=== PATIENT | male | born 1960 | race Caucasian/White ===

== ENCOUNTER 2020-02-27 16:23 | Emergency (ER) | payer BC, SELFPAY ==
--- NOTE | 2020-02-27 16:59 | ED.GENADULT ---
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 Currently there is no blurry vision there is a watery drainage with some no nasal discharge no fever chills no headaches and has good visual acuity. Onset (ago): day(s) Radiation: non-radiation Severity: moderate Quality: burning Pain Consistency: constant Exacerbating factors: none Associated symptoms: denies other symptoms Related Data Allergies Allergy/AdvReac Type Severity Reaction Status Date / Time PCN Allergy Mild Uncoded 09/25/07 20:13 Review of Systems Review of Systems: All systems reviewed & are unremarkable except as noted in HPI and below PMFSH Past Medical History Medical History Patient denies medical problems Exam Const: General: cooperative and healthy appearing HENMT: Head: normal to inspection General nose exam: Normal external nose present Face and sinus: normal facial exam and sinuses nontender Mouth: Yes Normal oral and palatal mucosa present Eyes: Visual Vallecillo: normal visual vallecillo by confrontation Alignment and Position: alignment normal and position normal Conjunctivae: conjunctivae normal and conjunctival abnormality Sclera: sclerae normal Cornea: fluorescein used ( used in both eyes left eye showed a small corneal abrasion at the 5 o'cloc) Chest: Chest palpation & inspection: normal inspection of the chest Cardio: Jugular venous distension: no JVD Palpation: normal PMI Rate: regular rate Rhythm: regular rhythm Heart sounds: S1 normal heart sound present and S2 normal heart sound present GI: Inspection: normal to inspection Skin: General skin exam: normal color and no rashes or lesions noted Neuro: General: oriented to person, oriented to place, oriented to time, patient oriented x3 and gait normal Extrem: General: normal to inspection Psych: Appearance: grossly normal Mental Status: mental status grossly normal Course Course Emergency Course: fluorescein stain used to bilateral eyes and small corneal abrasion was located in the 5 o'clock position of his left cornea and Cortisporin eye drop was instilled into the left eye. Eye drops were given to the patient and advised to take 1 drop 3 times a day x1 week and follow-up with his primary care physician. Procedures FB Removal Eye Foreign Body #1: Foreign Body Removal Date: 02/27/20 Foreign Body Removal Time: 17:07 Location: eye (L) and eye (R) Topical anesthetic used: tetracaine Foreign body: other ( No foreign body observed with some inspection) Evidence of corneal penetration: Yes Technique: irrigation Procedure performed under: direct visualization with magnification Post-procedure medication: ophthalmic antibiotic and topical anesthetic Patient tolerated procedure: well Critical Care Time Critical Care Time Critical Care Time: No Discharge Plan Discharge Clinical Impression: Corneal abrasion, left Qualifiers: Encounter type: initial encounter Qualified Code(s): S05.02XA - Injury of conjunctiva and corneal abrasion without foreign body, left eye, initial encounter Patient Disposition: Home, Self-Care Condition: Stable Instructions: Antibiotic Form, Corneal Abrasion (ED) Additional Instructions: use eye drops 3 times daily x1 week and follow-up with primary care physician within 1 week for further evaluation treatment. Follow-up/Referrals: Tavo Pickens MD [Primary Care P
[2020-02-27 17:15] VITALS: BP 161/96; PULSE 70; RESP 20; TEMP 36.9; O2SAT 98
[2020-02-27 17:30] VITALS: PULSE 69; RESP 20; O2SAT 98
[2020-02-27] MEDS: NEOMYCIN/POLYMYXIN/DEXAMETH OP SUSP 5 ML BTL 1 DROP (17:34)
== END 2020-02-27 17:35 | disposition home or self-care (01) ==
PROVIDERS: Emergency Provider Emergency Medicine; PCP Internal Medicine
DX: S05.02XA Injury of conjunctiva and corneal abrasion without foreign body, left eye, initial encounter (principal); T15.92XA Foreign body on external eye, part unspecified, left eye, initial encounter
CPT/HCPCS: 99282; 99283; A9270

== ENCOUNTER 2020-11-24 01:08 | Emergency (ER) | payer BC, SELFPAY ==
[2020-11-24 01:08] VITALS: BP 133/98; PULSE 78; RESP 20; TEMP 36.6; O2SAT 100
[2020-11-24 01:10] VITALS: PULSE 78
--- NOTE | 2020-11-24 01:14 | ECG_ITS ---
Measurements Intervals Lambert Rate: 74 P: 28 NH: 225 QRS: 12 QRSD: 92 T: 18 QT: 353 QTc: 393 Interpretive Statements SINUS RHYTHM WITH FIRST DEGREE AV BLOCK ABNORMAL ECG Electronically Signed On 11-24-2020 8:10:55 CDT by Mor Burris D.O.
[2020-11-24 01:29] LABS: Basophils Absolute Auto 0.06 K/mm3 (0.00-0.10); Basophils Percent Auto 0.8 % (0.0-1.0); Eosinophils Absolute Auto 0.31 K/mm3 (0.02-0.50); Eosinophils Percent Auto 4.3 % (1.0-6.0); Hematocrit 42.3 % (40.0-54.0); Hemoglobin 15.2 g/dL (14.0-18.0); Immature Granulocyte Absolute 0.03 K/mm3 (0.00-0.00); Immature Granulocyte Percent A 0.4 % (0.0-0.0); Lymphocytes Absolute Auto 2.97 K/mm3 (1.10-4.50); Lymphocytes Percent Auto 40.8 % (18.0-42.0); Mean Corpuscular HGB Conc 35.9 g/dL (32.0-36.0); Mean Corpuscular Hemoglobin 31.8 pg (27.0-31.0); Mean Corpuscular Volume 88.5 fL (78.0-102.0); Mean Platelet Volume 9.2 fl (8.7-11.0); Monocytes Absolute Auto 0.64 K/mm3 (0.10-0.90); Monocytes Percent Auto 8.8 % (2.0-11.0); Neutrophils Absolute Auto 3.3 K/mm3 (1.7-7.2); Neutrophils Percent Auto 44.9 % (50.0-70.0); Platelet Count Result 241 K/mm3 (150-420); Red Blood Count 4.78 M/mm3 (4.70-6.10); Red Cell Distribution Width 12.6 % (11.6-14.4); White Blood Count 7.3 K/mm3 (4.8-10.8)
--- NOTE | 2020-11-24 01:31 | ED.ARRPALP ---
HPI - Arrhythmia/Palpitations General Chief Complaint: Arrhythmia/Palpitations Stated Complaint: Heart Palpitations Time Seen by Provider: 11/24/20 01:31 History of Present Illness HPI narrative: 60-year-old male patient is here with chief complaints of palpitations that started around 9:45 p.m. last night. Patient states that he fell asleep and was awakened by work just prior to arrival here and he felt palpitations 1 more time. Apparently these have been going on intermittently since the August after his Post COVID vaccine shot. Patient has completed the short series however. He denies any associated chest pain, shortness of breath, diaphoresis or any pain in the neck arms or jaw at the time of the palpitations are otherwise. Denies overuse of caffeine. He is not a smoker has quit 4 years ago. His only medication is losartan hydrochlorothiazide for high blood pressure. Patient denies any unexplained weight loss or any tremors are waking up at night with sweating and the palpitations. patient states that the the palpitations the very infrequent and happen randomly. He has never had a Holter monitor placed before Related Data Home Medications Medication Instructions Recorded Confirmed losartan-hydrochlorothiazide 1 tablet PO DAILY 11/24/20 11/24/20 Allergies Allergy/AdvReac Type Severity Reaction Status Date / Time PCN Allergy Mild Uncoded 09/25/07 20:13 Review of Systems Review of Systems: All systems reviewed & are unremarkable except as noted in HPI and below PMFSH Past Medical History Medical History (Updated 11/24/20 @ 02:00 by Eli Stafford MD) Hypertension Patient denies medical problems Social History Social History Gender identity (if verbalized by the patient): Male Exam Const: General: healthy appearing, no acute distress and alert Nutritional Appearance: well nourished Orientation/consciousness: patient oriented x3 HENMT: Head: normal to inspection Eyes: Conjunctivae: conjunctivae normal Pupils: Equal, round and reactive pupils present EOM: EOMs intact bilaterally Neck: Neck: normal visual inspection and no lymphadenopathy Chest: Chest palpation & inspection: normal inspection of the chest Resp: Effort & Inspection: normal respiratory effort Auscultation: clear to auscultation bilaterally Cardio: Rate: regular rate Rhythm: regular rhythm Heart sounds: no murmurs GI: GI Palp: Yes Soft to palpation, No Tenderness to palpation present (GI), No Guarding due to palpation present (GI), No Rigid due to palpation, No Palpable mass present and No Rebound tenderness present Auscultation: normal bowel sounds Back/Spine/Pelvis: Back: no CVA tenderness Skin: General skin exam: normal color Rashes: no rashes Neuro: General: patient oriented x3, moves all extremities, no focal motor deficits and CN's II-XI intact bilaterally Cranial nerves: Yes Nystagmus not present Speech: normal speech Gait exam (Neuro): Normal gait present Extrem: General: normal to inspection and no edema Psych: Appearance: grossly normal Mental Status: mental status grossly normal Affect: normal affect Attitude: cooperative Thought content: Yes Normal thought content present Course Course Emergency Course: EKG shows normal sinus rhythm with first-degree AV block. No other dysrhythmia is noted. CBCs normal. Comprehensive metabolic profile is normal an AST is pending. Troponin is normal. Patient has continued to remain in sinus rhythm on the monitor during his ER stay. Will arrange for the patient to have a Holter monitor for 1 week and he has been provided with instructions. MDM - Arrhythmia/Palpitations Lab Data Result diagrams: 11/24/20 01:25 11/24/20 01:25 Labs: Lab Results 11/24/20 11/24/20 11/24/20 Range/Units 01:25 01:25 01:25 WBC 7.3 (4.8-10.8) K/mm3 RBC 4.78 (4.70-6.10) M/mm3 Hgb 15.2 (14.0-18.0) g
[2020-11-24 01:46] LABS: Alanine Aminotransferase 63 U/L (16-63); Albumin Level 3.7 g/dL (3.4-5.0); Alkaline Phosphatase 57 U/L (46-116); Anion Gap 14 mmol/L (8-16); Bilirubin,Total 0.5 mg/dL (0.00-1.00); Blood Urea Nitrogen 9 mg/dL (7-18); Calcium 8.5 mg/dL (8.5-10.1); Carbon Dioxide 23 mmol/L (21-32); Chloride 104 mmol/L (98-108); Estimated CRCL calculation 69 ml/min; Estimated Glomerular Filt Rate > 60; Glucose 133 mg/dL (70-99); Osmolality Calculated 292 mOsm/kg (285-295); Potassium 3.6 mmol/L (3.5-5.1); Sodium 141 mmol/L (136-145); Total Protein 7.3 g/dL (6.4-8.2); Troponin I 7.3 ng/L (0.00-60.4)
[2020-11-24 01:55] LABS: Magnesium 2.1 mg/dL (1.8-2.4)
[2020-11-24 02:12] LABS: Aspartate Amino Transferase 38 U/L (15-37)
[2020-11-24 02:31] VITALS: BP 121/87; PULSE 76; RESP 20; TEMP 37.1; O2SAT 99
== END 2020-11-24 02:35 | disposition home or self-care (01) ==
PROVIDERS: Emergency Provider Emergency Medicine; PCP Internal Medicine
DX: R00.2 Palpitations (principal)
CPT/HCPCS: 36415; 80053; 83735; 84484; 85025; 93005; 99282; 99284

== ENCOUNTER 2020-11-24 15:53 | Outpatient (CLI) | payer BC, SELFPAY ==
--- NOTE | 2020-12-25 08:22 | WPDHOLTEREM ---
Holter/Event Monitor Holter/Event Monitor Date of procedure: 11/24/20 Holter/Event Procedure: Event Monitor Indications: Palpitations Conclusion: 1. 28 days event monitor between 11/24/20-12/23/20. There are 22 available transmissions for analysis. 2. Predominant rhythm is sinus rhythm. HR range 30-196 bpm; average HR 70 bpm. 3. There are occasional premature supraventricular complexes with total burden of <1%. There are 2 episodes of atrial fibrillation, fastest at 126 bpm and longest lasting 1 hr, 18 minutes. There are 5 episodes of supraventricular tachycardia, fastest at 196 bpm. 4. There are occasional premature ventricular complexes with total burden of <1%. No ventricular tachycardia. 5. There are 2 pauses greater than 2 seconds with longest at 2.7 seconds at 09:11. 6. Patient reports 7 episodes of symptoms of heart racing and symptoms other than listed which demonstrate sinus rhythm, HR range 76-85 bpm with 1 PAC, and episodes of atrial fibrillation and SVT with HR range 87-196 bpm.
== END 2020-11-24 15:54 | disposition home or self-care (01) ==
LOC: CHSCARD 15:55
PROVIDERS: PCP Internal Medicine; Visit Provider Internal Medicine
DX: R00.2 Palpitations (principal); R42 Dizziness and giddiness
CPT/HCPCS: 93270

== ENCOUNTER 2021-01-14 07:03 | Outpatient (CLI) | payer BC, SELFPAY ==
--- NOTE | 2021-01-14 07:06 | ECHO_ITS ---
Patient Info Name: Rick Reeves Age: 60 years : 1960 Gender: Male Ht: 68 in Wt: 210 lbs BSA: 2.17 m2 HR: 63 bpm BP: 140 / 68 mmHg Exam Date: 01/14/2021 7:16 AM Exam Location: [facility] Patient Status: Outpatient Admit Date: 01/14/2021 Staff Ordering Physician: Mor Burris DO Crime Prevention Police Officer: Jacob Marks RDCS, RT Attending Provider: Mor Burris DO Referring Physician: Dayton PERALTA; Exam Type: CA echo doppler color flow Study Info Indications I48.0 - Paroxysmal atrial fibrillation Complete two-dimensional, color flow and Doppler transthoracic echocardiogram is performed. Strain analysis performed. Summary 1. Complete two-dimensional, color flow and Doppler transthoracic echocardiogram is performed. 2. Left ventricular chamber dimension is normal. 3. Left ventricular systolic function is normal, estimated at 60-65%. 4. The left ventricular diastolic function is normal. 5. E/e' 8 is minimally elevated. 6. Global longitudinal strain is normal at -21.9%. 7. Left atrial chamber dimension is mildly enlarged. 8. There is mild mitral valve regurgitation. 9. There is trace tricuspid valve regurgitation. 10. No pulmonary hypertension, estimated pulmonary arterial systolic pressure is 34 mmHg. 11. Dilated inferior vena cava with >50% collapse upon inspiration consistent with elevated right atrial pressure, 10 mmHg. Left Ventricle E/e' 8 is minimally elevated. Global longitudinal strain is normal at -21.9%. Left ventricular chamber dimension is normal. Left ventricular systolic function is normal, estimated at 60-65%. The left ventricular diastolic function is normal. Right Ventricle Right ventricular chamber dimension is normal. Right ventricular systolic function is normal. Left Atria Left atrial chamber dimension is mildly enlarged. Right Atria Right atrial chamber dimension is normal. Aortic Valve The aortic valve is trileaflet. There is no aortic valve stenosis. There is no aortic valve regurgitation. Pulmonic Valve There is no pulmonic regurgitation. Mitral Valve There is no mitral valve stenosis. There is mild mitral valve regurgitation. Tricuspid Valve There is trace tricuspid valve regurgitation. No pulmonary hypertension, estimated pulmonary arterial systolic pressure is 34 mmHg. Pericardium/Pleural There is no pericardial effusion. Inferior Vena Cava Dilated inferior vena cava with >50% collapse upon inspiration consistent with elevated right atrial pressure, 10 mmHg. Aorta The aortic root size at the sinus of Valsalva is normal. Left Ventricular Outflow Tract Name Value Normal LVOT 2D LVOT Diameter 2.0 cm LVOT Doppler LVOT Peak Velocity 108 cm/s LVOT Peak Gradient 5 mmHg LVOT Mean Gradient 2 mmHg LVOT VTI 25 cm LVOT VTI/AV VTI Ratio 0.9 LVOT Stroke Volume 82 ml Mitral Valve Name
== END 2021-01-14 07:04 | disposition home or self-care (01) ==
LOC: CHSIMG 07:04
PROVIDERS: PCP Internal Medicine; Visit Provider Internal Medicine Cardiovascular Disease
DX: I48.0 Paroxysmal atrial fibrillation (principal); I34.0 Nonrheumatic mitral (valve) insufficiency
CPT/HCPCS: 93306

== ENCOUNTER 2021-02-08 07:50 | Outpatient (CLI) | payer BC, SELFPAY ==
--- NOTE | 2021-02-18 12:56 | WPDHOMESLEEP ---
Sleep Study - Home Unattended Date of Study: 02/08/21 <Rama Manley DO - Last Filed: 02/18/21 13:10> Ordering Provider: Mor Burris DO <Rama Manley, DO - Last Filed: 02/18/21 13:10> Interpreting Provider: Rama Manley DO <Rama Manley DO - Last Filed: 02/18/21 13:10> Home Sleep Study Type: Apnea Link Air <Rama Manley DO - Last Filed: 02/18/21 13:10> Height: 1.73 m <Rama Manley DO - Last Filed: 02/18/21 13:10> Weight: 95.254 kg <Rama Manley DO - Last Filed: 02/18/21 13:10> Body Mass Index: 31.9 <Rama Manley DO - Last Filed: 02/18/21 13:10> Neck Circumference (inches): 18.5 <Rama Manley DO - Last Filed: 02/18/21 13:10> Armour: 6 <Rama Manley DO - Last Filed: 02/18/21 13:10> Reason for Sleep Study Hypersomnia <Rama Manley DO - Last Filed: 02/18/21 13:10> Sleep History The patient is a 60-year-old male with hypertension and paroxysmal atrial fibrillation that had a home sleep test ordered by his logistics technician. The patient works as a general contractor. He denies awakening from sleep short of breath. He denies awakening at night with heartburn, belching or cough. He rarely snores and it is never loud enough that others complain. He denies having trouble sleeping when he has a cold. He denies waking up gasping for air throughout the night. He occasionally has heart palpitations or irregular heartbeats throughout the night. He denies falling asleep during the day and rarely while driving. He denies sleep paralysis, cataplexy and hypnagogic / hypnopompic hallucinations. He denies having nightmares. He often has thoughts racing through his mind. He denies feeling sad, depressed or anxious. He denies kicking throughout the night. He denies crawling and aching feelings in his legs swell as leg pain during the night. He denies grinding his teeth during sleep and awakening with morning jaw pain. He denies being bothered by pain during the day and being awakened by pain during the night. He occasionally wakes up feeling stiff in the morning with sore and achy muscles. He goes to bed at 9:30 p.m. on the weekdays and 11:00 p.m. on the weekends. It takes him a few minutes to fall asleep. He wakes up 2-3 times per night. When he awakens, he will use the restroom and pray. Sometimes he can fall asleep within a few minutes but other times it takes hours. He will wake up at 5:30 a.m. on the weekdays and 8:00 a.m. on the weekends. He typically gets 6-8 hours of sleep per night. He does not stay in bed after waking up in the morning. He does not consume any caffeinated beverages within 2 hours of going to bed. He does not do physical exercise before bedtime. He will watch television before falling asleep. He will take naps in the afternoon or evening on rainy days. The naps are usually refreshing. The patient quit smoking cigarettes in 2016. He drinks 2-3 caffeinated beverages per week. He will drink 2-3 alcoholic beverages per day. He denies recreational drug use. <Rama Manley DO - Last Filed: 02/18/21 13:10> [facility] Past Medical History Medical History: Medical History Hypertension Patient denies medical problems <Rama Manley DO - Last Filed: 02/18/21 13:10> Social History Social History: Social History Smoking status: Former smoker Alcohol intake: current Drinks per week: 5 Gender identity (if verbalized by the patient): Male <Rama Manley DO - Last Filed: 02/18/21 13:10> Medications Home Medications: Home Medications Medication Instructions Recorded Confirmed Type losartan-hydrochlorothiazide 1 tablet PO DAILY 11/24/20 12/21/20 History aspirin 325 mg tablet,delayed 325 mg PO DAILY 12/21/20 12/21/20 H
[2021-02-18 13:09] VITALS: BMI 31.9
== END 2021-02-09 10:34 | disposition home or self-care (01) ==
LOC: ANHCSM 07:51
PROVIDERS: PCP Internal Medicine; Visit Provider Internal Medicine Cardiovascular Disease
DX: G47.33 Obstructive sleep apnea (adult) (pediatric) (principal); G47.10 Hypersomnia, unspecified
CPT/HCPCS: 95806

== ENCOUNTER 2021-02-23 13:14 | Outpatient (CLI) | payer BC, SELFPAY ==
[2021-02-23 14:51] LABS: Influenza A QL RT-PCR Negative (Negative); Influenza B QL RT-PCR Negative (Negative); SARS-CoV-2 RNA PCR Negative (Negative)
== END 2021-02-23 13:15 | disposition home or self-care (01) ==
LOC: CHSLAB 13:17
PROVIDERS: PCP Internal Medicine; Visit Provider Internal Medicine
DX: Z20.822 Contact with and (suspected) exposure to COVID-19 (principal)
CPT/HCPCS: 87081; 87502; 87880; C9803; U0003; U0005

== ENCOUNTER 2021-02-25 04:58 | Emergency (ER) | payer BC, SELFPAY ==
--- NOTE | ~2021-02-25 | CT_ITS ---
EXAMINATION: CT soft tissue neck w con DATE: 02/25/2021 07:28 INDICATION: Throat pain and swelling TECHNIQUE: Computed tomography (CT) of the neck was performed with 75 mL Omnipaque-350 intravenous co ntrast. Automated exposure control and iterative reconstruction technique were employed. The dose-abraham gth product was 533.94 mGy-cm. COMPARISON: None FINDINGS: Thyroid gland is unremarkable. Submandibular and parotid glands are normal and symmetric. There are scattered normal-sized lymph nodes in the neck, no lymphadenopathy. No masses identified. Atheroscl erotic calcifications at the bilateral carotid bulbs with 40% stenosis at the right carotid bulb and 25% stenosis at the left carotid bulb relative to normal distal artery lumen diameter (NASCET criteri a). The deep spaces of the neck are unremarkable with no abscess or abnormal masses. Airway is unrema rkable. Mild cervical spondylosis. Orbits are unremarkable. Mild mucosal thickening in the left maxi llary and right sphenoid sinuses. Lung apices are normal. Visualized superior mediastinum is unremar kable. IMPRESSION: 1. Normal deep spaces of the neck with widely patent airway and no abscess. 2. Atherosclerosis with mild stenosis at the bilateral carotid bulbs, 40% on the right and 25% on the left. Reviewed, dictated and finalized at location A. IMPRESSION: 1. Normal deep spaces of the neck with widely patent airway and no abscess. 2. Atherosclerosis with mild stenosis at the bilateral carotid bulbs, 40% on th e right and 25% on the left.
--- NOTE | 2021-02-25 05:03 | ED.ALLEREA ---
HPI - Allergic Reaction General Chief complaint: Allergic Reaction Stated complaint: Possible Allergic Reaction Time Seen by Provider: 02/25/21 05:04 Source: patient Mode of arrival: ambulatory Limitations: no limitations History of Present Illness HPI narrative: 60-year-old man with a history of hypertension comes in today complaining of throat swelling and difficulty breathing that woke him up at 0130. He states He has had a sore throat and hoarse voice for last 3 or 4 days and tested negative a few days ago for COVID, influenza and strep. Patient states that he started taking azithromycin 2 days ago for the symptoms. He denies itching, wheezing coughing, rash, shortness of breath, abdominal pain, nausea and vomiting. He has had similar allergic reactions to penicillin in the past. His states that his face looks puffy, especially around his eyes. complaint: allergic reaction Onset (ago): hour(s) (1) Exposure: medication Symptoms: difficulty swallowing and difficulty breathing Severity: moderate Treatment prior to arrival: benadryl Previous Allergic Reaction History: anaphylaxis Related Data Home Medications Medication Instructions Recorded Confirmed losartan-hydrochlorothiazide 1 tablet PO DAILY 11/24/20 02/25/21 aspirin 325 mg PO DAILY 02/25/21 02/25/21 flecainide 50 mg PO DAILY PRN 02/25/21 02/25/21 Allergies Allergy/AdvReac Type Severity Reaction Status Date / Time PCN Allergy Mild Uncoded 09/25/07 20:13 Review of Systems Review of Systems: All systems reviewed & are unremarkable except as noted in HPI and below Constitutional: Constitutional: Denies chills and Denies fever(s) ENT: Reports dysphagia, Denies nasal congestion and Reports sore throat Cardiovascular: Cardiovascular: Denies chest pain, Denies rapid heart rate and Denies radiating jaw, neck or arm pain Respiratory: Respiratory: Denies cough, Reports dyspnea and Denies wheezing Gastrointestinal: Gastrointestinal: Denies abdominal pain, Denies nausea and Denies vomiting Neurologic: Denies dizziness Hematologic/Lymphatic: Hematologic/Lymphatic: Denies easy bleeding and Denies easy bruising Allergic/Immunologic: Allergic/Immunologic: Reports throat swelling PMFSH Past Medical History Medical History (Updated 02/25/21 @ 07:37 by Brenton Melendrez MD) Hypertension Obstructive sleep apnea PAF (paroxysmal atrial fibrillation) Patient denies medical problems Social History Social History Smoking status: Former smoker Alcohol intake: current Drinks per week: 5 Gender identity (if verbalized by the patient): Male Exam Const: General: alert Orientation/consciousness: patient oriented x3 Other: Mild acute distress. Hoarse voice HENMT: Head: normal to inspection Ears: external ears normal, TM's normal bilaterally and EAC's normal General nose exam: Normal nares present Mouth: Yes moist mucous membranes Throat: posterior oropharynx normal Other: Facial edema Eyes: Conjunctivae: conjunctivae normal Pupils: Equal, round and reactive pupils present EOM: EOMs intact bilaterally Resp: Effort & Inspection: normal respiratory effort, not labored and no retractions Auscultation: clear to auscultation bilaterally, no rales, no rhonchi and no wheezes Cardio: Rate: regular rate Rhythm: regular rhythm Heart sounds: no murmurs Skin: General skin exam: normal color, no jaundice and no pallor Rashes: no rashes Neuro: General: patient oriented x3, moves all extremities, no focal motor deficits and CN's II-XI intact bilaterally Gait exam (Neuro): Normal gait present Extrem: General: normal to inspection and no clubbing, cyanosis or edema Psych: Appearance: grossly normal and well kempt Affect: normal affect Attitude: cooperative Thought content: Yes Normal thought content present Course Course Emergency Course: 0545: Patient states his throat swelling fee
[2021-02-25] MEDS: diphenhydrAMINE HCl INJ 50 MG/ML VIAL 25 MG IV PUSH (05:24)
[2021-02-25] MEDS: methylPREDNISolone SOD SUCC 125 MG VIAL IV PUSH (05:24)
[2021-02-25] MEDS: EPINEPHrine HCL INJ 1 MG/ML AMPUL 0.3 MG SUB-Q (05:33)
[2021-02-25 05:46] VITALS: BP 127/115; PULSE 64; RESP 18; TEMP 36.7; O2SAT 100
--- NOTE | 2021-02-25 06:37 | PC.NURSE ---
pt reporting that his legs and arms twitch every now and than. Informed MD Melendrez, no new orders at this time.
[2021-02-25 06:41] LABS: Basophils Absolute Auto 0.08 K/mm3 (0.00-0.10); Basophils Percent Auto 0.9 % (0.0-1.0); Eosinophils Absolute Auto 0.35 K/mm3 (0.02-0.50); Eosinophils Percent Auto 3.9 % (1.0-6.0); Hematocrit 46.8 % (40.0-54.0); Immature Granulocyte Absolute 0.07 K/mm3 (0.00-0.00); Immature Granulocyte Percent A 0.8 % (0.0-0.0); Lymphocytes Absolute Auto 2.85 K/mm3 (1.10-4.50); Lymphocytes Percent Auto 32.1 % (18.0-42.0); Mean Corpuscular HGB Conc 34.2 g/dL (32.0-36.0); Mean Corpuscular Hemoglobin 31.1 pg (27.0-31.0); Mean Corpuscular Volume 90.9 fL (78.0-102.0); Mean Platelet Volume 8.7 fl (8.7-11.0); Monocytes Absolute Auto 1.07 K/mm3 (0.10-0.90); Monocytes Percent Auto 12.1 % (2.0-11.0); Neutrophils Absolute Auto 4.5 K/mm3 (1.7-7.2); Neutrophils Percent Auto 50.2 % (50.0-70.0); Nucleated Red Blood Cells Absolute Auto 0.02 K/mm3 (0.00-0.00); Nucleated Red Blood Cells Perc 0.2 % (0-0.0); Platelet Count Result 240 K/mm3 (150-420); Red Blood Count 5.15 M/mm3 (4.70-6.10); Red Cell Distribution Width 12.6 % (11.6-14.4); White Blood Count 8.9 K/mm3 (4.8-10.8)
[2021-02-25 06:54] LABS: Alanine Aminotransferase 67 U/L (16-63); Albumin Level 3.9 g/dL (3.4-5.0); Alkaline Phosphatase 54 U/L (46-116); Anion Gap 9 mmol/L (8-16); Aspartate Amino Transferase 30 U/L (15-37); Bilirubin,Total 0.7 mg/dL (0.00-1.00); Blood Urea Nitrogen 9 mg/dL (7-18); Calcium 8.8 mg/dL (8.5-10.1); Carbon Dioxide 27 mmol/L (21-32); Chloride 100 mmol/L (98-108); Estimated CRCL calculation 64 ml/min; Estimated Glomerular Filt Rate 59; Glucose 138 mg/dL (70-99); Osmolality Calculated 282 mOsm/kg (285-295); Potassium 4.3 mmol/L (3.5-5.1); Sodium 136 mmol/L (136-145); Total Protein 7.1 g/dL (6.4-8.2)
[2021-02-25 07:56] VITALS: BP 124/87; PULSE 63; RESP 14; TEMP 36.9; O2SAT 99
== END 2021-02-25 07:58 | disposition home or self-care (01) ==
PROVIDERS: Emergency Provider Emergency Medicine; PCP Internal Medicine
DX: J02.8 Acute pharyngitis due to other specified organisms (principal); Z87.891 Personal history of nicotine dependence
CPT/HCPCS: 36415; 70491; 80053; 85025; 96372; 96374; 96375; 99283; 99284; J0171; J1200; J2930; Q9967

== ENCOUNTER 2022-06-12 09:50 | Emergency (ER) | payer BC, SELFPAY ==
[2022-06-12 09:59] VITALS: BP 145/82; PULSE 84; RESP 16; TEMP 36.7; O2SAT 99
--- NOTE | 2022-06-12 10:33 | ED.GENADULT ---
HPI - General Adult General Chief complaint: Skin/Abscess/Foreign Body Stated complaint: upper lip lac Time Seen by Provider: 06/12/22 10:06 Related Data Home Medications Medication Instructions Recorded Confirmed aspirin 325 mg tablet 325 mg PO DAILY 02/25/21 03/28/22 omega 8-xrq-uek-fish oil 60 mg-90 1 cap PO BID 04/05/22 mg-500 mg capsule (Fish Oil) losartan 50 mg-hydrochlorothiazide 1 tablet PO DAILY 06/12/22 06/12/22 12.5 mg tablet metoprolol succinate 25 mg 25 mg PO DAILY 06/12/22 06/12/22 tablet,extended release 24 hr Allergies Allergy/AdvReac Type Severity Reaction Status Date / Time erythromycin base Allergy Severe Anaphylactic Verified 06/12/22 10:48 Shock PCN Allergy Unknown unknown Uncoded 06/12/22 10:48 [facility] Past Medical History Medical History Hypertension Obstructive sleep apnea PAF (paroxysmal atrial fibrillation) Patient denies medical problems Social History Social History Smoking status: Former smoker Alcohol intake: current Drinks per week: 5 Living arrangements: with family Gender identity (if verbalized by the patient): Male Course Vital Signs Vital signs: Vital Signs Temperature 98.1 F 06/12/22 09:59 Pulse Rate 84 06/12/22 09:59 Respiratory Rate 16 06/12/22 09:59 Blood Pressure 145/82 H 06/12/22 09:59 Pulse Oximetry 99 06/12/22 09:59 Oxygen Delivery Room Air 06/12/22 09:59 Temperature 98.0 F 06/12/22 10:45 Pulse Rate 63 06/12/22 10:45 Respiratory Rate 20 06/12/22 10:45 Blood Pressure 130/74 06/12/22 10:45 Pulse Oximetry 97 06/12/22 10:45 Oxygen Delivery Room Air 06/12/22 10:45 Medical Decision Making Vital Signs Vital Signs: Vital Signs Temperature 98.1 F 06/12/22 09:59 Pulse Rate 84 06/12/22 09:59 Respiratory Rate 16 06/12/22 09:59 Blood Pressure 145/82 H 06/12/22 09:59 Pulse Oximetry 99 06/12/22 09:59 Oxygen Delivery Room Air 06/12/22 09:59 Temperature 98.0 F 06/12/22 10:45 Pulse Rate 63 06/12/22 10:45 Respiratory Rate 20 06/12/22 10:45 Blood Pressure 130/74 06/12/22 10:45 Pulse Oximetry 97 06/12/22 10:45 Oxygen Delivery Room Air 06/12/22 10:45 Discharge Plan Discharge Clinical Impression: Laceration Patient Disposition: Home, Self-Care Condition: Stable Instructions: Care For Your Stitches (ED) Additional Instructions: Please return to have your sutures removed in 10 days. Prescriptions: No Action metoprolol succinate 25 mg tablet extended release 24 hr 25 mg PO DAILY Rx Instructions: TAKE 1 TABLET BY MOUTH EVERY DAY losartan-hydrochlorothiazide 50-12.5 mg tablet 1 tablet PO DAILY Rx Instructions: TAKE 1 TABLET BY MOUTH EVERY DAY aspirin 325 mg Tablet 325 mg PO DAILY omega 8-gby-dvt-fish oil [Fish Oil] 60-90-500 mg capsule 1 cap PO BID Follow-up/Referrals: Tavo Pickens MD [Primary Care Provider] -
[2022-06-12] MEDS: TETANUS,DIPHTHERIA,AC PERTUSSIS ADULT 0.5 ML (ADACEL) IM (10:38)
[2022-06-12 10:45] VITALS: BP 130/74; PULSE 63; RESP 20; TEMP 36.7; O2SAT 97
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
== END 2022-06-12 10:52 | disposition home or self-care (01) ==
PROVIDERS: Emergency Provider Family Medicine; PCP Internal Medicine
DX: S01.511A Laceration without foreign body of lip, initial encounter (principal); I10 Essential (primary) hypertension; I48.0 Paroxysmal atrial fibrillation; Z79.82 Long term (current) use of aspirin; Z87.891 Personal history of nicotine dependence; Z23 Encounter for immunization; W45.8XXA Other foreign body or object entering through skin, initial encounter
CPT/HCPCS: 12013; 90471; 90715; 99282

== ENCOUNTER 2022-07-28 04:27 | Emergency (ER) | payer BC, SELFPAY ==
[2022-07-28 04:31] VITALS: PULSE 70
[2022-07-28 04:43] VITALS: BP 123/76; PULSE 70; RESP 18; TEMP 36.3; O2SAT 100
--- NOTE | 2022-07-28 04:44 | ED.DIZZY ---
HPI - Dizziness General Chief Complaint: Dizziness Stated Complaint: dizxieness Source: patient Mode of arrival: ambulatory Limitations: no limitations History of Present Illness HPI Narrative: 62-year-old male with a history of hypertension, dyslipidemia, LINUS not on CPAP, paroxysmal atrial fibrillation on p.r.n. flecainide presents to the ER with -- irregular heartbeat at 11.30 p.m. When he woke up this morning 2:00 a.m. he had a similar feeling. He got up to go to the bathroom and felt -- lightheaded. He continued to remain lightheaded on standing up. He is currently lightheaded on standing up and is orthostatic with a blood pressure drop of 17 and a heart rate increase of 22. -- Discomfort in the interscapular region. He rates is it as a pain of 3/10. -- Transient shortness of breath. No fever or chills. No chest pain. patient had a Holter monitor which revealed atrial fibrillation of greater than 1 hour duration with a rate of 126 along with SVT. he had 2 sinus pauses lasting 2 seconds and 2.7 seconds. The patient had an echo which revealed an EF of 60-65% along with mild MR, TR and left atrial enlargement. MD elicited complaint: dizziness and lightheadedness Onset (ago): hour(s) ( Started 3 hours ago) Timing: sudden onset Severity: moderate Description: lightheadedness Context: change in body position History of similar symptoms: No Exacerbating factors: change in body position Relieving factors: nothing Associated symptoms: shortness of breath Related Data Home Medications Medication Instructions Recorded Confirmed omega 0-tef-sxh-fish oil 60 mg-90 1 cap PO BID 04/05/22 06/12/22 mg-500 mg capsule (Fish Oil) metoprolol succinate 25 mg 25 mg PO DAILY 06/12/22 06/12/22 tablet,extended release 24 hr Fish Oil 1,000 mg PO DAILY 07/28/22 07/28/22 Vazalore 325 mg PO DAILY PRN Atrial 07/28/22 07/28/22 Fibrillation flecainide 50 mg PO USEASDIRECTD 07/28/22 07/28/22 Allergies Allergy/AdvReac Type Severity Reaction Status Date / Time erythromycin base Allergy Severe Anaphylactic Verified 06/12/22 10:48 Shock Penicillins Allergy Unknown Verified 07/28/22 05:11 PCN Allergy Unknown unknown Uncoded 06/12/22 10:48 Review of Systems Review of Systems: All systems reviewed & are unremarkable except as noted in HPI and below Constitutional: Constitutional: Reports as per HPI and Reports no additional constitutional complaints Eyes: Eyes: Reports as per HPI and Reports no additional eye complaints ENT: Reports system reviewed and no additional complaints, except as documented and Reports as per HPI Cardiovascular: Cardiovascular: Reports as per HPI, Reports no additional cardiovascular complaints and Reports rapid heart rate Respiratory: Respiratory: Reports as per HPI, Reports no additional respiratory complaints and Reports dyspnea Gastrointestinal: Gastrointestinal: Reports as per HPI and Reports no additional gastrointestinal complaints Genitourinary: Genitourinary: Reports no additional male genitourinary complaints and Reports as per HPI Musculoskeletal: Musculoskeletal: Reports no additional musculoskeletal complaints and Reports as per HPI Integumentary/Breasts: Skin/Breast: Reports system reviewed and no additional complaints, except as docu and Reports as per HPI Neurologic: Reports system reviewed and no additional complaints, except as documented, Reports as per HPI and Reports dizziness Psychiatric: Psychiatric: Reports no additional psychiatric complaints and Reports as per HPI Endocrine: Endocrine: Reports no additional endocrine complaints and Reports as per HPI Hematologic/Lymphatic: Hematologic/Lymphatic: Reports no additional hematologic/lymphatic complaints and Reports as per HPI Allergic/Immunologic: Allergic/Immunologic: Reports no additional allergic/immunologic complaints and Reports as per HPI PMF Past Medical History Medical History (Reviewed 07/28/22 @ 05:07 by Na
--- NOTE | 2022-07-28 05:12 | ECG_ITS ---
Measurements Intervals [place] Rate: 70 P: 40 RI: 223 QRS: 24 QRSD: 86 T: 33 QT: 373 QTc: 404 Interpretive Statements SINUS RHYTHM WITH FIRST DEGREE AV BLOCK LOW QRS VOLTAGE IN PRECORDIAL LEADS [QRS DEFLECTION < 1.0 mV IN CHEST LEADS] ABNORMAL ECG COMPARED TO ECG 11/24/2020 01:17:03 NO SIGNIFICANT CHANGES Electronically Signed On 07-29-2022 7:38:47 CDT by Leopoldo Rodriguez M.D.
[2022-07-28 05:25] LABS: Basophils Absolute Auto 0.07 K/mm3 (0.00-0.10); Eosinophils Absolute Auto 0.42 K/mm3 (0.02-0.50); Eosinophils Percent Auto 5.9 % (1.0-6.0); Hematocrit 41.3 % (40.0-54.0); Hemoglobin 15.1 g/dL (14.0-18.0); Immature Granulocyte Absolute 0.03 K/mm3 (0.00-0.00); Immature Granulocyte Percent A 0.4 % (0.0-0.0); Lymphocytes Absolute Auto 2.37 K/mm3 (1.10-4.50); Lymphocytes Percent Auto 33.5 % (18.0-42.0); Mean Corpuscular HGB Conc 36.6 g/dL (32.0-36.0); Mean Corpuscular Hemoglobin 31.4 pg (27.0-31.0); Mean Corpuscular Volume 85.9 fL (78.0-102.0); Monocytes Absolute Auto 0.75 K/mm3 (0.10-0.90); Monocytes Percent Auto 10.6 % (2.0-11.0); Neutrophils Absolute Auto 3.4 K/mm3 (1.7-7.2); Neutrophils Percent Auto 48.6 % (50.0-70.0); Platelet Count Result 238 K/mm3 (150-420); Red Blood Count 4.81 M/mm3 (4.70-6.10); White Blood Count 7.1 K/mm3 (4.8-10.8)
[2022-07-28] MEDS: LACTATED RINGERS 500 ML 999 ML IV CONT (05:25)
[2022-07-28 05:42] LABS: D Dimer 0.23 mg/L (0.19-0.50); Partial Thromboplastin Time 28.2 SEC (23.90-30.70); Prothrombin Time 11.1 Seconds (9.50-12.10)
[2022-07-28 05:47] LABS: Lactic Acid Reflex 1.1 mmol/L (0.4-2.0)
[2022-07-28 05:51] LABS: Alanine Aminotransferase 31 U/L (16-63); Albumin Level 3.5 g/dL (3.4-5.0); Alkaline Phosphatase 50 U/L (46-116); Anion Gap 11 mmol/L (8-16); Aspartate Amino Transferase 27 U/L (15-37); Bilirubin,Total 0.7 mg/dL (0.00-1.00); Blood Urea Nitrogen 14 mg/dL (7-18); Calcium 8.6 mg/dL (8.5-10.1); Carbon Dioxide 24 mmol/L (21-32); Chloride 98 mmol/L (98-108); Estimated CRCL calculation 65 ml/min; Estimated Glomerular Filt Rate > 60; Glucose 115 mg/dL (70-99); Osmolality Calculated 277 mOsm/kg (285-295); Potassium 3.2 mmol/L (3.5-5.1); Sodium 133 mmol/L (136-145); Total Protein 6.7 g/dL (6.4-8.2); Troponin I 8.7 ng/L (0.00-60.4)
[2022-07-28 05:57] LABS: NT Pro B Type Natriuretic Pept 156 pg/mL (0-125)
[2022-07-28 06:21] VITALS: BP 120/86; PULSE 62; RESP 14; O2SAT 96
== END 2022-07-28 06:30 | disposition home or self-care (01) ==
PROVIDERS: Emergency Provider Internal Medicine Critical Care Medicine; PCP Internal Medicine
DX: I95.1 Orthostatic hypotension (principal); R06.02 Shortness of breath; I48.0 Paroxysmal atrial fibrillation; I10 Essential (primary) hypertension; Z87.891 Personal history of nicotine dependence; Z79.899 Other long term (current) drug therapy
CPT/HCPCS: 36415; 80053; 83605; 83880; 84484; 85025; 85380; 85610; 85730; 93005; 96360; 99284; J7120

== ENCOUNTER 2023-04-28 14:35 | Outpatient (CLI) | payer BC, SELFPAY ==
[2023-04-28 15:39] LABS: Influenza A QL RT-PCR Negative (Negative); Influenza B QL RT-PCR Negative (Negative); RSV RNA, RT-PCR Negative (Negative); SARS-CoV-2 RNA PCR Negative (Negative)
== END 2023-04-28 14:36 | disposition home or self-care (01) ==
LOC: CHSLAB 14:37
PROVIDERS: PCP Internal Medicine; Visit Provider Internal Medicine
DX: R05.9 Cough, unspecified (principal)
CPT/HCPCS: 87637

== ENCOUNTER 2023-06-20 00:15 | Day surgery (SDC) | payer BC, SELFPAY ==
[2023-05-26 14:35] VITALS: BMI 31.8
--- NOTE | 2023-06-16 14:20 | SUR.PREOP ---
Patient called regarding upcoming procedure. Reviewed preop instructions, appointment times, and procedure prep.
[2023-06-20 08:00] VITALS: BP 141/66; PULSE 63; RESP 18; TEMP 35.9; O2SAT 97; BMI 32.6
[2023-06-20] MEDS: LACTATED RINGERS 1,000 ML 150 ML IV CONT (08:27)
--- NOTE | 2023-06-20 08:34 | WPDANESEPPF ---
Anes - Initial Pre Proc Eval Procedure: Operation Date: 06/20/23 09:00 Proposed Procedures p Colonoscopy - Nelson Carias MD Date/Time: 06/20/23 08:34 Surgeon: Nelson Carias MD Pre Op Diagnosis: hx colon polyps Patient Data Age: 63 Gender: M Height: 1.73 m Weight: 97.4 kg Last Vital Signs Temp 35.9 C L 06/20/23 08:00 Pulse 63 06/20/23 08:00 Resp 18 06/20/23 08:00 BP 141/66 H 06/20/23 08:00 Pulse Ox 97 06/20/23 08:00 O2 Del Method Room Air 06/20/23 08:00 Allergies Allergy/AdvReac Type Severity Reaction Status Date / Time erythromycin base Allergy Severe Anaphylactic Verified 06/20/23 08:07 Shock Penicillins Allergy Unknown Verified 06/20/23 08:07 PCN Allergy Unknown unknown Uncoded 06/20/23 08:07 Home Medications Medication Instructions Recorded Confirmed Type Fish Oil 1,200 mg PO DAILY 07/28/22 06/20/23 History Vazalore 325 mg PO DAILY PRN Atrial 07/28/22 06/20/23 History Fibrillation flecainide 50 mg PO USEASDIRECTD PRN AFib 07/28/22 06/20/23 History losartan 100 mg tablet 100 mg PO DAILY #90 tabs 11/14/22 06/20/23 Rx metoprolol succinate 25 mg See Rx Instructions .Route 02/02/23 06/20/23 Rx tablet,extended release 24 hr .COMPLEX #90 tabs Prostagenix 1 tab-cap PO DAILY 05/26/23 06/20/23 History magnesium 500 mg tablet 15 mg PO DAILY 05/26/23 06/20/23 History Patient hx anesthesia problems: none Family hx anesthesia problems: none Results Review: All pre-operative results and documents have been reviewed as part of the pre-operative evaluation. [facility] Past Medical History Medical History Hypertension Obstructive sleep apnea PAF (paroxysmal atrial fibrillation) Patient denies medical problems Social History Social History Years smoked: 30 Smoking status: Former smoker Tobacco type: cigarettes Alcohol intake: current Drinks per week: 5 Do You Feel Safe in your Home?: Yes Lack of Transportation: No Lack of Food: Never True Current Housing: I Have Housing Concerned About Future Housing: No Difficulty Paying Gas/Electric Bills: No Difficulty Paying for Meds: No Currently Unemployed: No Education: Trade/Vocational Certificate Difficulty w/ Childcare or Family Care: No Living arrangements: with family Gender identity (if verbalized by the patient): Male Spiritual care concerns: No Anes - Eval Final PreProcedure Day of Procedure 06/20/23 08:34 Patient weight: obese Heart: regular rate and rhythm Lungs: clear to auscultation Airway: Mallampati scale class II Neurological: alert and oriented Last oral intake: >/= 8 hours ASA classification: III Emergent: no Anesthetic plan: proceed Anesthesia type and monitoring: general GIVS and standard monitoring Results Review: All pre-operative results and documents have been reviewed as part of the pre-operative evaluation. Informed Consent: The patient's anesthetic plan and its attendant risks and benefits were discussed with the patient/family/POA. Questions were solicited and answers provided to the satisfaction of the patient/family/POA.
--- NOTE | 2023-06-20 09:06 | PM.HPGS ---
History of Present Illness History of Present Illness Consent: Risks, benefits, and alternatives have been discussed and questions answered. Patient agrees to proceed with procedure. Chief complaint: hx colon polyps Narrative: Rick Reeves is a 63 year old male with colon polyp, last colonoscopy about 5 years ago Review of Systems Constitutional: Constitutional: Denies headache(s) and Denies weakness Eyes: Eyes: Denies blurry vision ENT: Reports Normal hearing present, Denies headache(s) and Denies neck pain Cardiovascular: Cardiovascular: Denies chest pain and Denies dyspnea Respiratory: Respiratory: Denies dyspnea Gastrointestinal: Gastrointestinal: Reports no additional gastrointestinal complaints Genitourinary: Genitourinary: Denies dysuria Musculoskeletal: Musculoskeletal: Denies neck pain Integumentary/Breasts: Skin/Breast: Denies dry skin Neurologic: Reports Normal hearing present, Denies headache(s) and Denies weakness Psychiatric: Psychiatric: Denies anxiety Endocrine: Endocrine: Denies change in body appearance Hematologic/Lymphatic: Hematologic/Lymphatic: Denies easy bleeding Allergic/Immunologic: Allergic/Immunologic: Denies urticaria PMFSH Past Medical History Medical History (Updated 06/20/23 @ 09:07 by Nelson Carias MD) Colon polyp Hypertension Obstructive sleep apnea PAF (paroxysmal atrial fibrillation) Patient denies medical problems Social History Social History Years smoked: 30 Smoking status: Former smoker Tobacco type: cigarettes Alcohol intake: current Drinks per week: 5 Do You Feel Safe in your Home?: Yes Lack of Transportation: No Lack of Food: Never True Current Housing: I Have Housing Concerned About Future Housing: No Difficulty Paying Gas/Electric Bills: No Difficulty Paying for Meds: No Currently Unemployed: No Education: Trade/Vocational Certificate Difficulty w/ Childcare or Family Care: No Living arrangements: with family Gender identity (if verbalized by the patient): Male Spiritual care concerns: No Meds Home Medications and Allergies Home Medications Medication Instructions Recorded Confirmed Type Fish Oil 1,200 mg PO DAILY 07/28/22 06/20/23 History Vazalore 325 mg PO DAILY PRN Atrial 07/28/22 06/20/23 History Fibrillation flecainide 50 mg PO USEASDIRECTD PRN AFib 07/28/22 06/20/23 History losartan 100 mg tablet 100 mg PO DAILY #90 tabs 07/24/23 02/27/24 Rx metoprolol succinate 25 mg See Rx Instructions .Route 02/02/23 06/20/23 Rx tablet,extended release 24 hr .COMPLEX #90 tabs Prostagenix 1 tab-cap PO DAILY 05/26/23 06/20/23 History magnesium 500 mg tablet 15 mg PO DAILY 05/26/23 06/20/23 History Allergies Allergy/AdvReac Type Severity Reaction Status Date / Time erythromycin base Allergy Severe Anaphylactic Verified 06/20/23 08:07 Shock Penicillins Allergy Unknown Verified 06/20/23 08:07 PCN Allergy Unknown unknown Uncoded 06/20/23 08:07 Vital Signs Vital Signs - 24 hr 06/20/23 08:00 Temperature 96.7 F L Pulse Rate 63 Respiratory Rate 18 Blood Pressure 141/66 H Pulse Oximetry 97 Oxygen Delivery Room Air Exam Const: General: comfortable and no acute distress HENMT: Face/Nose/Sinus: Normal nares present Eyes: General: appearance normal, both eyes and all related structures Neck: Neck: no JVD Resp: Auscultation: clear to auscultation bilaterally Cardio: Rate: regular rate Rhythm: regular rhythm GI: Inspection: non-distended GI Palp: Yes Soft to palpation Skin: General skin exam: normal color Neuro: General: gait normal Speech: normal speech Extrem: General: normal to inspection Psych: Mental Status: mental status grossly normal Assessment and Plan Assessment and plan (1) Colon polyp: Code(s): K63.5 - Polyp of colon Status: Acute Assessment and Plan: colonoscopy
[2023-06-20 09:24] VITALS: BP 100/68; PULSE 77; RESP 14; O2SAT 98
[2023-06-20 09:34] VITALS: BP 113/64; PULSE 71; RESP 14; O2SAT 99
[2023-06-20 09:44] VITALS: BP 122/72; PULSE 59; RESP 16; O2SAT 97
== END 2023-06-20 09:50 | disposition home or self-care (01) ==
PROVIDERS: PCP Internal Medicine; Visit Provider Internal Medicine Gastroenterology
PROC: 0DJD8ZZ Inspection of Lower Intestinal Tract, Via Natural or Artificial Opening Endoscopic (ICD-10-PCS; CPT 45378; principal; 2023-06-20 09:00)
DX: Z12.11 Encounter for screening for malignant neoplasm of colon (principal); Z86.010 Personal history of colon polyps; K57.30 Diverticulosis of large intestine without perforation or abscess without bleeding; K64.8 Other hemorrhoids; I10 Essential (primary) hypertension; I48.0 Paroxysmal atrial fibrillation; G47.33 Obstructive sleep apnea (adult) (pediatric); Z87.891 Personal history of nicotine dependence
CPT/HCPCS: 45378; J2704; J7120

== ENCOUNTER 2023-09-27 16:06 | Outpatient (CLI) | payer BC, SELFPAY ==
[2023-09-27 16:24] LABS: Basophils Absolute Auto 0.04 K/mm3 (0.00-0.10); Basophils Percent Auto 0.6 % (0.0-1.0); Eosinophils Absolute Auto 0.34 K/mm3 (0.02-0.50); Hematocrit 41.6 % (40.0-54.0); Hemoglobin 14.5 g/dL (14.0-18.0); Immature Granulocyte Absolute 0.05 K/mm3 (0.00-0.00); Immature Granulocyte Percent A 0.7 % (0.0-0.0); Lymphocytes Absolute Auto 2.47 K/mm3 (1.10-4.50); Lymphocytes Percent Auto 36.1 % (18.0-42.0); Mean Corpuscular HGB Conc 34.9 g/dL (32-36); Mean Corpuscular Hemoglobin 30.3 pg (27.0-31.0); Mean Corpuscular Volume 86.8 fL (78.0-102.0); Mean Platelet Volume 8.8 fl (8.7-11.0); Monocytes Absolute Auto 0.57 K/mm3 (0.10-0.90); Monocytes Percent Auto 8.3 % (2.0-11.0); Neutrophils Absolute Auto 3.38 K/mm3 (1.70-7.20); Neutrophils Percent Auto 49.3 % (50.0-70.0); Platelet Count Result 227 K/mm3 (150-420); Red Blood Count 4.79 M/mm3 (4.70-6.10); Red Cell Distribution Width 12.1 % (11.6-14.4); White Blood Count 6.9 K/mm3 (4.8-10.8)
[2023-09-27 16:36] LABS: Prothrombin Time 10.8 Seconds (9.50-12.1)
[2023-09-27 16:38] LABS: Alanine Aminotransferase 59 U/L (16-63); Albumin Level 3.8 g/dL (3.4-5.0); Alkaline Phosphatase 50 U/L (46-116); Anion Gap 9 mmol/L (4-12); Aspartate Amino Transferase 38 U/L (15-37); Bilirubin,Total 1.2 mg/dL (0.00-1.00); Blood Urea Nitrogen 15 mg/dL (7-18); Calcium 8.8 mg/dL (8.5-10.1); Carbon Dioxide 26 mmol/L (21-32); Chloride 102 mmol/L (98-108); Estimated Glomerular Filt Rate > 60; Glucose 98 mg/dL (70-99); Osmolality Calculated 284 mOsm/kg (285-295); Potassium 4.1 mmol/L (3.5-5.1); Sodium 137 mmol/L (136-145); Total Protein 7.1 g/dL (6.4-8.2)
[2023-09-27 16:47] LABS: D Dimer 0.51 mg/L (0.19-0.50)
== END 2023-09-27 16:07 | disposition home or self-care (01) ==
LOC: CHSLAB 16:08
PROVIDERS: PCP Internal Medicine; Visit Provider Nurse Practitioner Family
DX: M79.89 Other specified soft tissue disorders (principal); T14.90XA Injury, unspecified, initial encounter
CPT/HCPCS: 36415; 80053; 85025; 85380; 85610

== ENCOUNTER 2023-09-27 16:57 | Emergency (ER) | payer BC, SELFPAY ==
[2023-09-27 16:57] VITALS: BP 159/87; PULSE 60; RESP 16; TEMP 36.4; O2SAT 97
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
[2023-09-27] MEDS: ENOXAPARIN 120 MG/0.8 ML SYRINGE 102 MG SUB-Q (17:30)
== END 2023-09-27 17:40 | disposition home or self-care (01) ==
PROVIDERS: Emergency Provider Emergency Medicine; PCP Internal Medicine
DX: M79.89 Other specified soft tissue disorders (principal); M79.662 Pain in left lower leg; I48.0 Paroxysmal atrial fibrillation; I10 Essential (primary) hypertension; Z87.891 Personal history of nicotine dependence
CPT/HCPCS: 96372; 99283; J1650

== ENCOUNTER 2023-09-28 08:52 | Outpatient (CLI) | payer BC, SELFPAY ==
--- NOTE | ~2023-09-28 | US_ITS ---
EXAMINATION: US venous doppler [facility] DATE: 09/28/2023 09:13 INDICATION: Left lower limb pain. Soft tissue disorder. TECHNIQUE: Grayscale ultrasound images without and with compression and Doppler ultrasound images of the left lower extremity veins were obtained. COMPARISON: None. FINDINGS: The visualized portions of left common femoral vein, profunda (deep) femoral vein, femoral vein, popl iteal vein, peroneal veins, posterior tibial veins, and greater saphenous vein outflow are patent. IMPRESSION: 1. No deep venous thrombosis. Reviewed, dictated and finalized at location A.
== END 2023-09-28 08:53 | disposition home or self-care (01) ==
LOC: CHSIMG 08:55
PROVIDERS: PCP Internal Medicine; Visit Provider Nurse Practitioner Family
DX: M79.89 Other specified soft tissue disorders (principal); T14.90XA Injury, unspecified, initial encounter
CPT/HCPCS: 93971

== ENCOUNTER 2024-05-02 09:15 | Outpatient (RCR) | payer BC, SELFPAY | END 2024-07-01 09:16 | disposition home or self-care (01) | LOC: ANHDMC 09:15 | PROVIDERS: PCP Internal Medicine; Visit Provider Internal Medicine | DX: E11.9 Type 2 diabetes mellitus without complications (principal); Z71.89 Other specified counseling | CPT/HCPCS: G0108 ==

== ENCOUNTER 2024-05-26 09:04 | Emergency (ER) | payer BC, SELFPAY ==
[2024-05-26] VITALS (50 sets, daily range): BP systolic 126–158; BP diastolic 66–122; PULSE 45–81; RESP 8–23; TEMP 36.2–36.6; O2SAT 95–100
--- NOTE | ~2024-05-26 | CT_ITS ---
History: Left-sided headache with dysarthria PROCEDURE: CT head without contrast. COMPARISON: 05/26/2024 at 9:12 AM TECHNIQUE: Axial imaging of the head performed from the skull base to the vertex without IV contrast. Sagittal a nd coronal reformations obtained. DLP: 681 mGy-cm FINDINGS: The ventricles are normal in size, shape and position. There is no mass, mass effect or midline shift. Within the left frontal lobe is a small focus of increased attenuation, likely a small intracranial h emorrhage (subarachnoid), not present on prior. This focus measures 6 mm in greatest dimension. No va sogenic edema is appreciated. No additional foci of hemorrhage are detected. No additional abnormality is noted. Visualized paranasal sinuses are clear. The mastoid air cells are well aerated. No acute displaced fractures within the overlying cranium. Impression: 6 mm focus of subarachnoid bleeding, as detailed above. These findings were discussed with Dr. Brumfield at 1:50 PM on 05/26/2024 Reviewed, dictated and finalized at location A. CAL PRACTICE ADMINISTRATOR Impression: 6 mm focus of subarachnoid bleeding, as detailed above. These findings were discussed with Dr. Brumfield at 1:50 PM on 05/26/2024
--- NOTE | ~2024-05-26 | CT_ITS ---
EXAMINATION: CTA BRAIN/CAROTID DATE: 05/26/2024 10:23 INDICATION: Stroke. Left-sided headache and numbness in the bilateral upper extremities TECHNIQUE: Computed tomographic angiography (CTA) of the head and neck was performed with 100 mL Omni paque-350 intravenous contrast. Multiplanar reconstructions and maximum intensity projection 3D-recon structions of the carotid arteries and of the intracranial arteries were created by the technologist on a separate workstation. Automated exposure control and iterative reconstruction technique were emp loyed.The dose-length product was 1230.80 mGy-cm. COMPARISON: None. FINDINGS: Carotid arteries: Visualized aortic arch is normal in caliber with minimal nonhemodynamically significant atherosclerot ic plaque and no dissection. There is 45% stenosis of the right carotid bulb relative to normal dista l artery lumen diameter (NASCET criteria). There is 55% stenosis of the left carotid bulb relative to normal distal artery lumen diameter. The left vertebral artery is dominant with no evident atheroscl erotic plaque or stenosis along the bilateral vertebral arteries. The visualized upper lungs are evan r. Superior mediastinum and cervical soft tissues are unremarkable. Mild cervical and moderate upper thoracic spondylosis. Intracranial arteries Left vertebral artery is dominant. There is a small amount of nonhemodynamically significant atherosc lerotic plaque at the bilateral carotid siphons. There is no hemodynamically significant stenosis in the vertebral, basilar and internal carotid arteries. There are no aneurysms identified. Both A1 and P1 segments are patent. There is also a patent right posterior communicating artery. Cerebral arteri al arborization appears symmetric. No abnormally enhancing brain lesions. IMPRESSION: 1. 45% stenosis of the right carotid bulb relative to normal distal artery lumen diameter (NASCET cri teria). 2. 55% stenosis of the left carotid bulb relative to normal distal artery lumen diameter. 3. Unremarkable cerebral CT angiogram with no hematoma significant stenosis, thrombosis or aneurysm. Reviewed, dictated and finalized at location A. ERN LAYOUT WORKER IMPRESSION: 1. 45% stenosis of the right carotid bulb relative to normal distal artery lume n diameter (NASCET criteria). 2. 55% stenosis of the left carotid bulb relative to normal distal artery lumen diameter. 3. Unremarkable cerebral CT angiogram with no hematoma significant stenosis, th rombosis or aneurysm.
--- NOTE | ~2024-05-26 | CT_ITS ---
EXAMINATION: CT brain wo con DATE: 05/26/2024 09:18 INDICATION: Stroke with difficulty speaking and left-sided headaches TECHNIQUE: Computed tomography (CT) of the head was performed without intravenous contrast. Sagittal and coronal reconstructions were performed. The mA was adjusted according to patient size. Iterative reconstruction technique was employed. The dose-length product was 681.00 mGy-cm. COMPARISON: None FINDINGS: No acute intracranial hemorrhage, acute infarction or abnormal extra axial fluid collection. There is mild scattered white matter hypoattenuation consistent with chronic small vessel ischemic disease. V entricles are normal and symmetric. No mass/mass effect. The orbits, paranasal sinuses and mastoid ai r cells are normal. IMPRESSION: 1. Mild scattered nonspecific cerebral white matter hypoattenuation consistent with chronic small ves pete ischemic disease. No other acute intracranial process. Reviewed, dictated and finalized at location A. R VEHICLE LICENSE CLERK IMPRESSION: 1. Mild scattered nonspecific cerebral white matter hypoattenuation consistent with chronic small vessel ischemic disease. No other acute intracranial process .
--- NOTE | ~2024-05-26 | XR_ITS ---
EXAMINATION: XR chest 1V portable DATE: 05/26/2024 09:39 INDICATION: Stroke. Numbness in both arms. TECHNIQUE: frontal view of the chest was obtained. COMPARISON: None FINDINGS: The lungs are clear with no focal airspace opacities, pulmonary edema, pleural effusion or pneumothor ax. The cardiomediastinal silhouette is normal. IMPRESSION: 1. No acute cardiopulmonary disease. Reviewed, dictated and finalized at location A. IC HEALTH CLINICAL NURSE SPECIALIST
--- OUTSIDE RECORDS SUMMARY | 2024-05-26 09:08 | XMS_ITS | Clinical Summary ---
Author Organization [facility] Address [address] [place] [address] Care Team Providers Care Hospital Account Liaison Name Role Phone Harsha Bailey MD Primary Care Provider [phone] Allergies Active Allergy Reactions Criticality Noted Date Comments Lactose Stomach upset,Vomiting Reaction: Stomach Cramps, Vomiting, Penicillins Hives,Other (See comments) High Reaction: Hives, Throat Swelling, Medications losartan (COZAAR) 50 mg tablet Take 50 mg by mouth daily 3 01/02/2019 Active Active Problems Problem Noted Date Diagnosed Date Numbness and tingling of left upper extremity Hyperlipidemia 09/06/2013 Overview (08/04/2017): Description: unRxed LDL 136, HDL 36. Impression: start lipitor 20 given current lipid guidelines. Chest pain 07/23/2013 Overview (08/04/2017): Impression: Check stress EKG. Dont overdo till this is figured out. Restart prilosec at 40. Reiterated earlier recs to quit cig. Notalgia 06/19/2013 Indigestion 05/06/2013 Dyspnea Immunizations Name Administration Dates Next Due Hep A / Hep B 03/20/2013,03/19/2012 Hep B Vaccine 05/04/2012 Influenza, Trivalent, Preservative Free, Intramu scular 03/19/2012 Tdap 03/19/2012 Surgical History Surgery Date Site/Laterality Comments COLONOSCOPY Medical History Medical History Date Comments Hypertension Chronic diarrhea Colon polyp Family History Medical History Relation Name Comments Colon cancer Mother Family history of colon cancer - (Added by Conv) Heart disease Mother Family history of cardiac disorder - (Added by Conv) Kidney failure Mother Family histor y of renal failure - (Added by Conv) Kidney failure Sister Family histor y of renal failure - (Added by Conv) Relation Name Status Comments Mother Sister Social History Tobacco Use Types Packs/Day Years Used Date Smoking Tobacco: Former Smokeless Tobacco: Never Alcohol Use Standard Drinks/Week Comments Yes 0 (1 standard drink = 0.6 oz pur e alcohol) 3-5 drinks per day Personal Safety Answer Date Recorded Getting School Help Needed Not on file 07/06 Sex and Gender Information Value Date Recorded Sex Assigned at Not on file Legal 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 Gender Identity Not on file Sexual Orientation Not on file Obstetrics History Last Filed Vital Signs Vital Sign Reading Time Taken Comments Blood Pressure 138/84 03/19/2019 3:14 PM COMMERCIAL LEASING MANAGER Pulse 67 03/19/2019 3:14 PM COMMERCIAL LEASING MANAGER Temperature 36.2 ??C (97.2 ??F) 07/23/2018 2:04 PM CD T Respiratory Rate 14 07/23/2018 2:24 PM CDT Oxygen Saturation 100% 07/23/2018 2:24 PM CDT Inhaled Oxygen Concentration - - Weight 96.6 kg (213 lb) 03/19/2019 3:14 PM [employer]ERCIAL LEASING MANAGER Height 172.7 cm (5' 8 ) 03/19/2019 3:14 PM COMMERCIAL LEASING MANAGER Body Mass Index 32.39 03/19/2019 3:14 PM COMMERCIAL LEASING MANAGER Plan of Treatment Not on file Insurance [facility] [employer] BL[employer]ESS [place] ANTH ACCESS BLUE ACCESS [place] Advance Directives For more information, please contact: [phone] * Full Code (Latest Code Status on File) Date Activated Date Inactivated Comments 07/23/2018 12:13 PM 07/23/2018 6:44 PM Care Teams Hospital Account Liaison Relationship Specialty Start Date End Date Harsha Bailey MD [id number] [address] PCP - General Endocrinology Diabetes & Metabolism 09/24/18
--- OUTSIDE RECORDS SUMMARY | 2024-05-26 09:08 | XMS_ITS | CONTINUITY OF CARE DOCUMENT ---
Author Name ascencion vegas Address Unknown Organization [facility] Address [address] [place] [address] Phone [phone] Care Team Providers Care Application Design Engineer Name Role Phone ascencion vegas Unavailable Unavailable
--- OUTSIDE RECORDS SUMMARY | 2024-05-26 09:08 | XMS_ITS | Referral Summary ---
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 Gender Identity Not on file Sexual Orientation Not on file Last Filed Vital Signs Vital Sign Reading Time Taken Comments Blood Pressure 138/84 03/19/2019 3:14 PM ACCESS DEVELOPER Pulse 67 03/19/2019 3:14 PM ACCESS DEVELOPER Temperature 36.2 ??C (97.2 ??F) 07/23/2018 2:04 PM CD T Respiratory Rate 14 07/23/2018 2:24 PM CDT Oxygen Saturation 100% 07/23/2018 2:24 PM CDT Inhaled Oxygen Concentration - - Weight 96.6 kg (213 lb) 03/19/2019 3:14 PM ACCESS DEVELOPER Height 172.7 cm (5' 8 ) 03/19/2019 3:14 PM ACCESS DEVELOPER Body Mass Index 32.39 03/19/2019 3:14 PM ACCESS DEVELOPER Plan of Treatment Not on file Insurance [facility] TRADITIONAL BLUE ACCESS [place] ANTH ACCESS BLUE ACCESS OOS Advance Directives For more information, please contact: [phone] * Full Code (Latest Code Status on File) Date Activated Date Inactivated Comments 07/23/2018 12:13 PM 07/23/2018 6:44 PM Care Teams Animal Therapist Relationship Specialty Start Date End Date Harsha Bailey MD [address] [facility] [address] [place] [address] PCP - General Endocrinology Diabetes & Metabolism 09/24/18
--- NOTE | 2024-05-26 09:15 | ECG_ITS ---
Test Date: 2024-05-26 09:20:05 Measurements Intervals [place] Rate: 62 P: -5 CA: 186 QRS: 35 QRSD: 89 T: 51 QT: 385 QTc: 393 Interpretive Statements SINUS RHYTHM LOW QRS VOLTAGE IN PRECORDIAL LEADS BASELINE ARTIFACT- AVF BORDERLINE ECG No previous ECG available for comparison Electronically Signed On 05-26-2024 15:28:23 LINING MAKER by Mor Burris D.O.
[2024-05-26 09:38] LABS: Basophils Absolute Auto 0.06 K/mm3 (0.00-0.10); Basophils Percent Auto 1.1 % (0.0-1.0); Eosinophils Percent Auto 5.3 % (1.0-6.0); Hematocrit 44.6 % (40.0-54.0); Hemoglobin 15.2 g/dL (14.0-18.0); Immature Granulocyte Absolute 0.02 K/mm3 (0.00-0.00); Immature Granulocyte Percent A 0.4 % (0.0-0.0); Lymphocytes Absolute Auto 2.02 K/mm3 (1.10-4.50); Lymphocytes Percent Auto 35.8 % (18.0-42.0); Mean Corpuscular HGB Conc 34.1 g/dL (32-36); Mean Corpuscular Hemoglobin 30.3 pg (27.0-31.0); Mean Platelet Volume 9.3 fl (8.7-11.0); Monocytes Absolute Auto 0.48 K/mm3 (0.10-0.90); Monocytes Percent Auto 8.5 % (2.0-11.0); Neutrophils Absolute Auto 2.77 K/mm3 (1.70-7.20); Neutrophils Percent Auto 48.9 % (50.0-70.0); Platelet Count Result 218 K/mm3 (150-420); Red Blood Count 5.01 M/mm3 (4.70-6.10); Red Cell Distribution Width 12.3 % (11.6-14.4); White Blood Count 5.7 K/mm3 (4.8-10.8)
--- OUTSIDE RECORDS SUMMARY | 2024-05-26 09:40 | XMS_ITS | CONTINUITY OF CARE DOCUMENT ---
Author Name ascencion vegas Address Unknown Organization [facility] Address [address] [address] [address] [place] [address] Phone [phone] Care Team Providers Care Painter Spring Name Role Phone ascencion vegas Unavailable Unavailable
--- OUTSIDE RECORDS SUMMARY | 2024-05-26 09:40 | XMS_ITS | Referral Summary ---
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 Gender Identity Not on file Sexual Orientation Not on file Last Filed Vital Signs Vital Sign Reading Time Taken Comments Blood Pressure 138/84 03/19/2019 3:14 PM COPING MACHINE ASSEMBLER Pulse 67 03/19/2019 3:14 PM COPING MACHINE ASSEMBLER Temperature 36.2 ??C (97.2 ??F) 07/23/2018 2:04 PM CD T Respiratory Rate 14 07/23/2018 2:24 PM CDT Oxygen Saturation 100% 07/23/2018 2:24 PM CDT Inhaled Oxygen Concentration - - Weight 96.6 kg (213 lb) 03/19/2019 3:14 PM COPING MACHINE ASSEMBLER Height 172.7 cm (5' 8 ) 03/19/2019 3:14 PM COPING MACHINE ASSEMBLER Body Mass Index 32.39 03/19/2019 3:14 PM COPING MACHINE ASSEMBLER Plan of Treatment Not on file Insurance [facility] TRADITIONAL BLUE ACCESS [place] ANTH ACCESS BLUE ACCESS OOS Advance Directives For more information, please contact: [phone] * Full Code (Latest Code Status on File) Date Activated Date Inactivated Comments 07/23/2018 12:13 PM 07/23/2018 6:44 PM Care Teams Cissp Relationship Specialty Start Date End Date Harsha Bailey MD [address] [facility] [address] [place] [address] PCP - General Endocrinology Diabetes & Metabolism 09/24/18
--- OUTSIDE RECORDS SUMMARY | 2024-05-26 09:40 | XMS_ITS | Clinical Summary ---
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 Gender Identity Not on file Sexual Orientation Not on file Obstetrics History Last Filed Vital Signs Vital Sign Reading Time Taken Comments Blood Pressure 138/84 03/19/2019 3:14 PM SYSTEMS SOFTWARE ENGINEER Pulse 67 03/19/2019 3:14 PM SYSTEMS SOFTWARE ENGINEER Temperature 36.2 ??C (97.2 ??F) 07/23/2018 2:04 PM CD T Respiratory Rate 14 07/23/2018 2:24 PM CDT Oxygen Saturation 100% 07/23/2018 2:24 PM CDT Inhaled Oxygen Concentration - - Weight 96.6 kg (213 lb) 03/19/2019 3:14 PM SYSTEMS SOFTWARE ENGINEER Height 172.7 cm (5' 8 ) 03/19/2019 3:14 PM SYSTEMS SOFTWARE ENGINEER Body Mass Index 32.39 03/19/2019 3:14 PM SYSTEMS SOFTWARE ENGINEER Plan of Treatment Not on file Insurance [facility] TRADITIONAL BLUE ACCESS [place] ANTH ACCESS BLUE ACCESS OOS Advance Directives For more information, please contact: [phone] * Full Code (Latest Code Status on File) Date Activated Date Inactivated Comments 07/23/2018 12:13 PM 07/23/2018 6:44 PM Care Teams Medical Lab Assistant Relationship Specialty Start Date End Date Harsha Bailey MD [address] [address] PCP - General Endocrinology Diabetes & Metabolism 09/24/18
[2024-05-26 09:50] LABS: Partial Thromboplastin Time 26.8 Sec (23.9-30.70); Prothrombin Time 10.8 Seconds (9.50-12.1)
[2024-05-26 09:54] LABS: Alanine Aminotransferase 49 U/L (16-63); Albumin Level 3.9 g/dL (3.4-5.0); Alkaline Phosphatase 54 U/L (46-116); Anion Gap 10 mmol/L (4-12); Aspartate Amino Transferase 18 U/L (15-37); Bilirubin,Total 0.7 mg/dL (0.00-1.00); Blood Urea Nitrogen 10 mg/dL (7-18); Calcium 9.3 mg/dL (8.5-10.1); Carbon Dioxide 28 mmol/L (21-32); Chloride 103 mmol/L (98-108); Estimated CRCL calculation 64 ml/min; Estimated Glomerular Filt Rate 59; Glucose 106 mg/dL (70-99); Osmolality Calculated 291 mOsm/kg (285-295); Potassium 3.8 mmol/L (3.5-5.1); Sodium 141 mmol/L (136-145); Troponin I 4.8 ng/L (0.00-60.4)
[2024-05-26] MEDS: SODIUM CHLORIDE 0.9% IV 1,000 ML 999 ML IV CONT (10:13)
[2024-05-26] MEDS: TENECTEPLASE 50 MG/10 ML VIAL 25 MG IV PUSH (11:20)
--- NOTE | 2024-05-26 11:37 | PC.NURSE ---
Report received, pt resting and continuing to monitor. VSS, aweaiting callback for transfer to Stroke center at [facility].
--- NOTE | 2024-05-26 12:05 | ED.NEUROSD ---
HPI - Neuro Symptoms/Deficit General Chief Complaint: Altered Mental Status Stated Complaint: slurred speach Time Seen by Provider: 05/26/24 09:20 Source: patient Mode of arrival: ambulatory Limitations: no limitations History of Present Illness HPI Narrative: Patient is a 64-year-old male with a right arm progressively worsening numbness all the way to the shoulder as well as difficulty with his speech. This started at 7:30 a.m.. He woke up normal and was brushing his teeth and further went to get a protein bar that is when he noticed at 7:30 a.m. difficulty and numbness opening the bar. patient has AFib and no anticoagulation but does have beta-tim and aspirin and occasional flecainide. Onset (ago): unknown ( 7:30 a.m. is last known well) Timing confirmed by: family member Location: speech ( difficulty pronunciation and words expression) and right arm ( sensory) History of same: No Severity: moderate Quality: numb and constant Relieving factors: none Exacerbating factors: none Context: sudden onset On Anticoagulants: No ( patient has AFib without anticoagulation; only uses aspirin and beta-block) Associated symptoms: denies other symptoms Treatments Prior to Arrival: Aspirin Related Data Home Medications ?Medication ?Instructions ?Recorded ?Confirmed ?Last Taken ?Type Fish Oil 1,200 mg PO DAILY 07/28/22 05/16/24 Unknown History flecainide 50 mg PO USEASDIRECTD PRN AFib 07/28/22 05/16/24 Unknown History aspirin 325 mg tablet 325 mg PO DAILY 05/16/24 05/16/24 Unknown History sildenafil (pulm.hypertension) 20 20 mg PO Q24H PRN sexual activity 05/26/24 Unknown History mg tablet Allergies Allergy/AdvReac Type Severity Reaction Status Date / Time erythromycin base Allergy Severe Anaphylactic Verified 05/26/24 09:58 Shock Penicillins Allergy Intermediate Swelling Verified 05/26/24 11:23 Review of Systems Review of Systems: All systems reviewed & are unremarkable except as noted in HPI and below Constitutional: Constitutional: Reports no additional constitutional complaints Eyes: Eyes: Reports no additional eye complaints ENT: Reports system reviewed and no additional complaints, except as documented Cardiovascular: Cardiovascular: Reports no additional cardiovascular complaints Respiratory: Respiratory: Reports no additional respiratory complaints Gastrointestinal: Gastrointestinal: Reports no additional gastrointestinal complaints Genitourinary: Genitourinary: Reports no additional male genitourinary complaints Musculoskeletal: Musculoskeletal: Reports no additional musculoskeletal complaints Integumentary/Breasts: Skin/Breast: Reports system reviewed and no additional complaints, except as docu Neurologic: Reports system reviewed and no additional complaints, except as documented Psychiatric: Psychiatric: Reports no additional psychiatric complaints Endocrine: Endocrine: Reports no additional endocrine complaints Hematologic/Lymphatic: Hematologic/Lymphatic: Reports no additional hematologic/lymphatic complaints Allergic/Immunologic: Allergic/Immunologic: Reports no additional allergic/immunologic complaints PMFSH Past Medical History Medical History Colon polyp Obstructive sleep apnea PAF (paroxysmal atrial fibrillation) Hypertension Patient denies medical problems Social History Social History Years smoked: 30 Smoking status: Former smoker Tobacco type: cigarettes Alcohol intake: current Drinks per week: 5 Do You Feel Safe in your Home?: Yes Lack of Transportation: No Lack of Food: Never True Current Housing: I Have Housing Concerned About Future Housing: No Difficulty Paying Gas/Electric Bills: No Difficulty Paying for Meds: No Currently Unemployed: No Education: Trade/Vocational Certificate Difficulty w/ Childcare or Family Care: No Living arrangements: with family Gender identity (if verbalized by the patient): Male Spiritual care concerns: No Exam Const: General: healthy appearing Nutritional Appearance: well nourished Orientation/consciousness: patient oriented x3 Limitations: no limitations HENMT: Head: normal to inspection Ears: external ears normal Face/Nose/Sinus: Normal external nose present Eyes: Conjunctivae: conjunctivae normal Pupils: Equal, round and reactive pupils present EOM: EOMs intact bilaterally Neck: Neck: normal visual inspection Chest: Chest palpation & inspection: normal inspection of the chest Resp: Effort & Inspection: normal respiratory effort and not labored Auscultation: clear to auscultation bilaterally and no crackles Cardio: Rate: regular rate Rhythm: regular rhythm Heart sounds: no murmurs GI: Inspection: non-distended GI Palp: Yes Soft to palpation and No Tenderness to palpation present (GI) Auscultation: normal bowel sounds : General: Yes bladder normal to palpation Back/Spine/Pelvis: Back: no CVA tenderness Skin: General skin exam: normal color Rashes: no rashes Wounds: no wounds Neuro: General: patient oriented x3, moves all extremities, no meningeal signs, no focal motor deficits and CN's II-XI intact bilaterally Cranial nerves: Yes Nystagmus not present Speech: No normal speech and Abnormal speech present slurred Details: expressive aphasia Gait exam (Neuro): Normal gait present Other: fast exam positive, NIH score on presentation is 3 and 2nd NIH score is 3 and 3rd NIH score is 3, GCS 15 Extrem: General: normal to inspection Psych: Mental Status: mental status grossly normal Affect: normal affect Attitude: cooperative Course Vital Signs Vital signs: Vital Signs Pulse Rate 66 05/26/24 09:16 Respiratory Rate 20 05/26/24 09:16 Blood Pressure 158/79 H 05/26/24 09:16 Pulse Oximetry 99 05/26/24 09:16 Temperature 36.2 C L 05/26/24 09:25 Pulse Rate 53 L 05/26/24 12:01 Respiratory Rate 16 05/26/24 11:31 Blood Pressure 137/88 05/26/24 11:31 Pulse Oximetry 100 05/26/24 11:31 Oxygen Delivery Room Air 05/26/24 09:44 MDM - Neuro Symptoms/Deficit MDM Narrative Medical decision making narrative: patient is a 64-year-old male with CVA on presentation with speech and right arm numbness. Last known well 7:30 a.m.. Confirmed last known well. Contraindication list was negative. Risks and benefits reviewed with the patient for TNK and patient agreed to get medication. Verbal agree was given to me. Unresolved NIH score over time. History of AFib without anticoagulation. TNK given at 11:21 a.m.. Patient met criteria for TNK. Patient will transfer for monitoring post TNK. post TNK shows resolving speech impediment and right upper extremity numbness. No side effects of TNK. Lab Data Attestation: I reviewed the patient's lab results. 05/26/24 09:32 05/26/24 09:32 Labs: Lab Results 05/26/24 Range/Units 09:32 WBC 5.7 (4.8-10.8) K/mm3 RBC 5.01 (4.70-6.10) M/mm3 Hgb 15.2 (14.0-18.0) g/dL Hct 44.6 (40.0-54.0) % MCV 89.0 (78.0-102.0) fL MCH 30.3 (27.0-31.0) pg MCHC 34.1 (32-36) g/dL RDW 12.3 (11.6-14.4) % Plt Count 218 (150-420) K/mm3 MPV 9.3 (8.7-11.0) fl Immature Gran % (Auto) 0.4 H (0.0-0.0) % Neut % (Auto) 48.9 L (50.0-70.0) % Lymph % (Auto) 35.8 (18.0-42.0) % [place] % (Auto) 8.5 (2.0-11.0) % Eos % (Auto) 5.3 (1.0-6.0) % Baso % (Auto) 1.1 H (0.0-1.0) % Lymph # (Auto) 2.02 (1.10-4.50) K/mm3 [place] # (Auto) 0.48 (0.10-0.90) K/mm3 Eos # (Auto) 0.30 (0.02-0.50) K/mm3 Baso # (Auto) 0.06 (0.00-0.10) K/mm3 Abs Immat Gran (auto) 0.02 H (0.00-0.00) K/mm3 Absolute Neuts (auto) 2.77 (1.70-7.20) K/mm3 Absolute Nucleated RBC 0.00 (0.00-0.00) K/mm3 Nucleated RBC % 0.0 (0-0.0) % PT 10.8 (9.50-12.1) Seconds INR 1.0 APTT 26.8 (23.9-30.70) Sec Sodium 141 (136-145) mmol/L Potassium 3.8 (3.5-5.1) mmol/L Chloride 103 (98-108) mmol/L Carbon Dioxide 28 (21-32) mmol/L Anion Gap 10 (4-12) mmol/L BUN 10 (7-18) mg/dL Creatinine 1.24 (0.70-1.30) mg/dL Estim Creat Clear Calc 64 ml/min Estimated GFR 59 (59 - ) Glucose 106 H (70-99) mg/dL Calculated Osmolality 291 (285-295) mOsm/kg Calcium 9.3 (8.5-10.1) mg/dL Total Bilirubin 0.7 (0.00-1.00) mg/dL AST 18 (15-37) U/L ALT 49 (16-63) U/L Alkaline Phosphatase 54 (46-116) U/L Troponin I 4.8 (0.00-60.4) ng/L Total Protein 7.0 (6.4-8.2) g/dL Albumin 3.9 (3.4-5.0) g/dL Imaging Data Attestation: I personally reviewed and interpreted this imaging study as follows: Radiologist's impression: Chest x-ray is negative for acute process CT scan of the head was negative for acute process CTA of the head and neck was negative for acute process and only 50% carotid stenosis on either side ECG Data EKG #1: Attestation: I personally reviewed and interpreted this ECG as follows: ECG completion date: 05/26/24 ECG completion time: 12:15 EKG Interpretation: normal rate, sinus rhythm, no ectopy, no ST changes, normal QRS, normal QT and NL axis Discharge Plan Discharge Clinical Impression: Acute CVA (cerebrovascular accident) Patient Disposition: Acute Care Hospital Condition: Serious Patient Language: [place] Prescriptions: No Action sildenafil (pulm.hypertension) 20 mg tablet 20 mg PO Q24H PRN (Reason: sexual activity) Fish Oil 1,200 mg PO DAILY flecainide 50 mg PO USEASDIRECTD PRN (Reason: AFib) Rx Instructions: To be taken if experiencing afib aspirin 325 mg tablet 325 mg PO DAILY metoprolol succinate 25 mg tablet extended release 24 hr See Rx Instructions .ROUTE .COMPLEX Qty: 90 2RF Dose Instruction: TAKE 1 TABLET BY MOUTH EVERY DAY Rx Instructions: TAKE 1 TABLET BY MOUTH EVERY DAY losartan 100 mg tablet See Rx Instructions .ROUTE .COMPLEX Qty: 90 2RF Dose Instruction: TAKE 1 TABLET BY MOUTH EVERY DAY Rx Instructions: TAKE 1 TABLET BY MOUTH EVERY DAY Follow-up/Referrals: Tavo Pickens MD [Primary Care Provider] - Time of Disposition: 12:16
--- NOTE | 2024-05-26 12:08 | PC.NURSE ---
Discussed w/ pt and his family about wait time at [facility] and awaiting callback from Hospitalist Dr Cervantes. Pt and family want transfer to [facility] system and are ok w/ awaiting until Dr Cervantes calls back and transfer to [facility] or [facility]. VSS, Monitor shows Sbrady w/ HR 50. Pt has clear speech and states he is feeling much better. Pt was ambulatory w/ SBA to and back to bed, continuing to monitor until transfer to [facility].
--- NOTE | 2024-05-26 12:51 | PC.NURSE ---
Report update given to Transfer center and pt has been accepted at [facility], Will call back as soon as bed is available. Pt and family updated and continuing to monitor. Pt stable, POC to still have pt fly per [facility] when a bed is assigned, ERP discussed air flight w/ Dr Cervantes hospitalist at [facility] and determined to fly when bed is available.
--- NOTE | 2024-05-26 13:05 | PC.NURSE ---
Pt c/o sudden onset now of Lt sided neck and Lt sided temporal pain. States H/A pain is about a 1 on PS, no further neuro dificits noted. ERP placed order to have rescan Head CT done at this time.
--- NOTE | 2024-05-26 13:58 | PC.NURSE ---
Call back from Dr Leroy about CT report, now noted small area on new CT scan. Will call update to [facility]. [facility] flight enroute.
--- NOTE | 2024-05-26 14:00 | PC.NURSE ---
Pt called stating bruising and swelling has increased to his Rt upper arm bicep area where an IV attempt was made earlier when he arrived. no active bleeding from site noted, area wrapped w/ pressure dressing.
--- NOTE | 2024-05-26 14:06 | PC.NURSE ---
Pt and family updated on new CT results. Call immediately placed to [facility] transfer center to speak w/ neuro again on new findings. Will call back w/ neuro because pt may need re-routed for transfer to [place], unsure at this time if pt will go to [facility]. Call placed to [facility] and new report given to RN taking pt. Will place on hold at this time until hearing back from [place] [facility] and neuro.
--- NOTE | 2024-05-26 15:15 | PC.NURSE ---
Still awaiting call back from [place] for bed assignment. [facility] here awaiting for transport to [place]. Continuing to monitor, pt VSS, neuro remains WNL.
--- NOTE | 2024-05-26 15:44 | PC.NURSE ---
Report given to MADINA Greene at [place] and [facility] leaving w/ pt at this time.
== END 2024-05-26 15:45 | disposition short-term general hospital (02) ==
PROVIDERS: Emergency Provider Emergency Medicine; PCP Internal Medicine
DX: I63.9 Cerebral infarction, unspecified (principal); I48.0 Paroxysmal atrial fibrillation; I10 Essential (primary) hypertension; Z79.82 Long term (current) use of aspirin; Z79.01 Long term (current) use of anticoagulants; Z87.891 Personal history of nicotine dependence
CPT/HCPCS: 36415; 70450; 70496; 70498; 71045; 80053; 84484; 85025; 85610; 85730; 93005; 96361; 96374; 99285; J3101; J7030; Q9967

== ENCOUNTER 2024-06-04 08:00 | Outpatient (RCR) | payer BC, SELFPAY ==
--- NOTE | 2024-06-04 10:32 | OTOPEVAL1 ---
Assessment and note entered by Lesli Gonzalez OT Evaluation Information Assessment Status Evaluation Diagnosis [place], acute, embolic ICD-10 Condition Codes (OT) Generalized muscle weakness M62.81 Reported Pain Level Pain Score 0: Self Report Assessment OT Clinical Summary The patient is a 64 year old male who was referred to outpatient OT due to acute embolic stroke. PMH includes diabetes. The patient previously demonstrated WNL R UE strength, R UE fine motor coordination, R proprioception, and executive functioning skills. 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 The patient scored 29.5% on QuickDASH with minimal dysfunction of R UE. The patient demonstrates the need for skilled OT to address deficits and return to PLOF needed to maximize independence and quality of life. Plan of Care Interventions Therapeutic Exercise,Manual Therapy,Neuro Re- education,Therapeutic Activities,Cognitive Function,Sensory Integrative Techniques,Self-Care/ Home Management OT Services Indicated Yes Treatment Frequency and 2-3 times per week for 10 visits. Duration These treatments will address the objective and functional deficits as defined above. The patient will be advanced safely and appropriately in order for the patient to progress towards his/her prior level of function. Additional exercises will be introduced and as well as a comprehensive home exercise program upon discharge, if needed, ?to ensure carryover of functional gains achieved in the clinic. This treatment plan has been reviewed and agreement upon by the patient.
--- NOTE | 2024-06-04 10:32 | OPREHPOC ---
Outpatient Therapy Plan of Care This is a Multidisciplinary Plan of Care that may contain components documented by all disciplines (PT, OT, and ST.) OT Problem 1 OT Problem #1 Knowledge Deficit OT Goal 1 Goal / Goal Update The patient will demonstrate 100% knowledge and return demonstration for UE HEP needed to increase strength and coordination for independence with daily tasks. 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 OT Problem 3 OT Problem #3 Impaired Coordination OT Goal 1 Goal / Goal Update The patient will increase fine motor coordination of R UE performing 9-hole peg test in 21 seconds in order to reach norms for age range needed to perform daily activities without dropping items. Target Visit 10 OT Goal 2 Goal / Goal Update The patient will demonstrate increased R proprioceptive input with 0 reports of dropping items and performing IADLs independently with 75% accuracy. Target Visit 10 OT Goal 1 Goal / Goal Update The patient will demonstrate increased executive functioning skills by completing Trails B in 81 seconds with no mistakes in order to increase the patient's problem solving skills for safety during IADLs. Target Visit 10
--- NOTE | 2024-06-28 08:57 | OTOPREEVAL ---
Assessment and note entered by Lesli Gonzalez OT Evaluation Information Assessment Status Re-evaluation Diagnosis Stroke, acute, embolic ICD-10 Condition Codes (OT) Generalized muscle weakness M62.81 Reported Pain Level Pain Score 3: Self Report Assessment OT Clinical Summary The patient demonstrates significant progress toward track worker strength, fine motor coordination and executive function skills which has increased patient's accuracy with fine motor tasks during daily activities. He demonstrates slight decline in sensation of R hand with reports that he has moderate tingling and had severe pain in R hand yesterday following heart catheter placement during surgery. The patient has moderate tingling in palm and back of hand and digits 3-5. Therapist educated the patient that if pain continues and his tingling does not improve, to refer to surgical team at [facility]. Therapist educated the patient to continue to monitor blood pressure to ensure safety. The patient demonstrates continued fine motor deficits with R, dominant hand to continue with POC at this time. Therapist to reassess progress at end of sessions for POC. Following the patient's procedure, the patient continues to demonstrate increased progress toward goals and reasonable expectation for improvement. The patient demonstrates slight decrease in score of QuickDASH from SOC to re-evaluation due to recent surgery, the patient demonstrates good potential for recovery. Plan of Care OT Services Indicated Yes These treatments will address the objective and functional deficits as defined above. The patient will be advanced safely and appropriately in order for the patient to progress towards his/her prior level of function. Additional exercises will be introduced and as well as a comprehensive home exercise program upon discharge, if needed, ?to ensure carryover of functional gains achieved in the clinic. This treatment plan has been reviewed and agreement upon by the patient.
--- NOTE | 2024-06-28 08:58 | OPREHPOC ---
Outpatient Therapy Plan of Care This is a Multidisciplinary Plan of Care that may contain components documented by all disciplines (PT, OT, and ST.) OT Problem 1 OT Problem #1 Knowledge Deficit OT Goal 1 Goal / Goal Update The patient will demonstrate 100% knowledge and return demonstration for UE HEP needed to increase strength and coordination for independence with daily tasks. 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 R UE: 122 lbs Progress Met OT Problem 3 OT Problem #3 Impaired Coordination OT Goal 1 Goal / Goal Update The patient will increase fine motor coordination of R UE performing 9-hole peg test in 21 seconds in order to reach norms for age range needed to perform daily activities without dropping items. R UE: 24 s Target Visit 10 Progress Partially Met OT Goal 2 Goal / Goal Update The patient will demonstrate increased R proprioceptive input with 0 reports of dropping items and performing IADLs independently with 75% accuracy. Reports feeling more control during 9-hole peg test; more control with fine motor tasks like brushing teeth Target Visit 10 Progress Partially Met OT Goal 1 Goal / Goal Update The patient will demonstrate increased executive functioning skills by completing Trails B in 81 seconds with no mistakes in order to increase the patient's problem solving skills for safety during IADLs. 76 s Target Visit 10 Progress Met
--- NOTE | 2024-07-03 08:19 | OTOPDC ---
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 The patient continues to demonstrate moderate numbness of digits 4-5 and has been educated on HEP to perform nerve glides and continue with plastic parts fabricator strengthening with putty in order to improve endurance and sensation. The patient has met most of his goals and does not require skilled OT at this time, patient discharged with HEP. Therapist educated patient on sensation safety concerns with R hand, to continue HEP, and follow up with neurologist if numbness persists. The patient scored 11.4% on QuickDASH questionnaire at discharge which demonstrates significant improvement from SOC scoring 29.5%, the patient demonstrates good progress toward goals and is discharged this date. Plan of Care OT Services Indicated No
--- NOTE | 2024-07-03 08:19 | OPREHPOC ---
Outpatient Therapy Plan of Care This is a Multidisciplinary Plan of Care that may contain components documented by all disciplines (PT, OT, and ST.) OT Problem 1 OT Problem #1 Knowledge Deficit OT Goal 1 Goal / Goal Update The patient will demonstrate 100% knowledge and return demonstration for UE HEP needed to increase strength and coordination for independence with daily tasks. 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 GOAL MET; DISCONTINUE 07/03/2024 R UE: 122 lbs L UE: 120 lbs Progress Met OT Problem 3 OT Problem #3 Impaired Coordination OT Goal 1 Goal / Goal Update The patient will increase fine motor coordination of R UE performing 9-hole peg test in 21 seconds in order to reach norms for age range needed to perform daily activities without dropping items. GOAL PLATEAUED; demonstrates WFL for fine motor coordination, sensation of digits 4-5 affecting fine motor coordination of UE 07/03/2024 R UE: 24 s L UE: 23 s Target Visit 10 Progress Partially Met OT Goal 2 Goal / Goal Update The patient will demonstrate increased R proprioceptive input with 0 reports of dropping items and performing IADLs independently with 75% accuracy. GOAL MET; DISCONTINUE 07/03/2024 Reports feeling more control during 9-hole peg test; more control with fine motor tasks like brushing teeth and manipulating tools with 90% accuracy Target Visit 10 Progress Partially Met OT Goal 1 Goal / Goal Update The patient will demonstrate increased executive functioning skills by completing Trails B in 81 seconds with no mistakes in order to increase the patient's problem solving skills for safety during IADLs. GOAL MET; DISCONTINUE 07/03/2024 76 s Target Visit 10 Progress Met
== END 2024-07-03 08:28 | disposition home or self-care (01) ==
LOC: CHSOT 08:00
PROVIDERS: PCP Internal Medicine
DX: I63.9 Cerebral infarction, unspecified (principal)
CPT/HCPCS: 97110; 97112; 97165; 97168; 97530

== ENCOUNTER 2024-07-12 16:25 | Outpatient (CLI) | payer BC, SELFPAY ==
--- OUTSIDE RECORDS SUMMARY | 2024-07-12 16:29 | XMS_ITS | CONTINUITY OF CARE DOCUMENT ---
Author Name ascencion vegas Address Unknown Organization [facility] Address [address] [place] [address] Phone [phone] Care Team Providers Care Hand Binder Stripper Name Role Phone ascencion vegas Unavailable Unavailable
[2024-07-12 16:36] LABS: Add Urine Microscopic? NO; Appearance Urine Clear (Clear); Bilirubin Urine Negative (Negative); Blood Urine Negative (Negative); Color Urine Light Yellow (Yellow); Glucose Urine UA Negative (Negative); Ketones Urine Negative (Negative); Leukocyte Esterase Ur Negative LEU/UL (Negative); Nitrate Urine Negative (Negative); Protein Urine Negative (Negative); Urobilinogen Urine 0.2 mg/dL (0.2-1.0)
== END 2024-07-12 16:26 | disposition home or self-care (01) ==
PROVIDERS: PCP Internal Medicine; Visit Provider Internal Medicine
DX: N39.0 Urinary tract infection, site not specified (principal)
CPT/HCPCS: 81003

== ENCOUNTER 2024-07-15 09:42 | Outpatient (CLI) | payer BC, SELFPAY ==
--- NOTE | ~2024-07-15 | MR_ITS ---
EXAMINATION: MR brain/brain stem wo con DATE: 07/15/2024 10:18 INDICATION: Stroke with memory issues and numbness to the right hand TECHNIQUE: Magnetic resonance imaging (MRI) of the brain and brainstem was performed without intraven ous contrast. Sequences included sagittal and axial T1-weighted SE, axial diffusion-weighted FS SE, a xial 3D SWAN, axial T2-weighted FLAIR, and axial T2-weighted FSE. Apparent diffusion coefficient (ADC ) maps were created. COMPARISON: CT dated 05/26/2024 FINDINGS: There are no areas of restricted diffusion to suggest acute infarction. Focal small region of increas ed cortical T2 signal without evident restricted diffusion along the left postcentral gyrus with rela tively normal appearance on the prior CT imaging suspicious for evolving subacute infarct. No intracr anial hemorrhage or abnormal intracranial mass lesion. There are scattered a few scattered small foci of nonspecific increased T2-weighted signal intensity in the cerebral white matter, predominantly in volving the deep and periventricular white matter is within normal limits for age. There are no intra parenchymal signal abnormalities seen on the other pulse sequences. The ventricles are symmetric and normal in size. There are no abnormal extra-axial fluid collections. Flow voids are seen in the cereb ral arteries on the T2-weighted sequences consistent with their expected patency. Left vertebral jonnathan ry is dominant. Visualized orbits and soft tissues are unremarkable. There are no areas of abnormal e nhancement on the post contrast images. IMPRESSION: 1. Small evolving left parietal subacute infarct at the post central gyrus. Reviewed, dictated and finalized at location B.
== END 2024-07-15 09:43 | disposition home or self-care (01) ==
LOC: GOSHIMG 09:43
PROVIDERS: PCP Internal Medicine; Visit Provider Internal Medicine
DX: I63.9 Cerebral infarction, unspecified (principal)
CPT/HCPCS: 70551

== ENCOUNTER 2024-07-25 09:06 | Outpatient (RCR) | payer BC, SELFPAY | END 2024-07-25 13:55 | disposition home or self-care (01) | LOC: ANHDMC 09:06 | PROVIDERS: PCP Internal Medicine; Visit Provider Internal Medicine | DX: E11.65 Type 2 diabetes mellitus with hyperglycemia (principal); Z71.89 Other specified counseling | CPT/HCPCS: G0108 ==

== ENCOUNTER 2024-09-03 08:59 | Outpatient (CLI) | payer BC, SELFPAY ==
--- NOTE | ~2024-09-03 | CT_ITS ---
CT ANGIOGRAM NECK AND HEAD History: Left carotid stenosis. Technique: Axial noncontrast imaging of the brain was performed. Serial spiral axial images through t he head and neck were then obtained during arterial phase IV injection of 100 cc of Omnipaque 350. 3- D postprocessing and MIP images were then reconstructed on the remote workstation. Dose reduction dayanna hnique was used on this scan by utilizing automated exposure control and iterative reconstruction dayanna hnique. The dose-length product (DLP) was 1103.27 mGy-cm. COMPARISON: 05/26/2024 CTA neck findings: Bilateral vertebral arteries are patent. Right vertebral artery is mildly hypopla stic as compared to the left. Mild common carotid, internal carotid, and external carotid arteries ar e patent. No large vessel occlusion. There is mixed soft and calcified plaque at the proximal right i nternal carotid artery, with stenosis of 50% in degree. There is makes calcified and soft plaque at t he proximal left internal carotid artery, with focal area of 60% stenosis. The proximal right interna l carotid artery demonstrates 50% stenosis relative to the normal distal artery lumen diameter. The p roximal left internal carotid artery demonstrates 60% stenosis relative to the normal distal artery l umen diameter. CTA head findings: Distal vertebral arteries, basilar artery, and posterior cerebral arteries are pat ent. Distal internal carotid arteries, middle cerebral arteries, and anterior cerebral arteries are p atent. No large vessel occlusion or stenosis. No aneurysm. Axial noncontrast imaging of brain demonstrate no acute infarct, intracranial hemorrhage, or mass les ion. Previously noted small subarachnoid hemorrhage in the left frontal lobe is resolved. No mass eff ect or midline shift. Christie-white differentiation intact. Ventricles and subarachnoid spaces are unrem arkable. Paranasal sinuses and mastoid air cells are clear. Calvarium intact. Impression: 50% stenosis of the proximal right internal carotid artery. 60% stenosis of the proximal left interna l carotid artery. Findings are essentially stable from prior exam. Reviewed, dictated and finalized at location . Impression: 50% stenosis of the proximal right internal carotid artery. 60% stenosis of the proximal left internal carotid artery. Findings are essentially stable from pr ior exam.
--- OUTSIDE RECORDS SUMMARY | 2024-09-03 09:09 | XMS_ITS | CONTINUITY OF CARE DOCUMENT ---
Author Name ascencion vegas Address Unknown Organization [facility] Address [address] [place] [address] Phone [phone] Care Team Providers Care Tapper Supervisor Name Role Phone ascencion vegas Unavailable Unavailable
--- OUTSIDE RECORDS SUMMARY | 2024-09-03 09:09 | XMS_ITS | Clinical Summary ---
Author Organization [facility] Address [address] [place] [address] Care Team Providers Care Labor Employment Associate Name Role Phone Tavo Pickens MD Primary Care Provider [phone] Allergies Active Allergy Reactions Criticality Noted Date Comments Penicillins Hives,Other (See comments) High Reaction: Hives, Throat Swelling, Medications metoprolol XL (TOPROL-XL) 25 mg extended release tabletIndication s:hypertension Take 1 tablet (25 mg total) by mouth every morning Active OneTouch Ultra Test strip USE DIRECTED TWICE DAILY TO MONITOR DIABETES 04/11/20 24 Active OneTouch Ultra2 Meter misc USE DIRECTED TO MONITOR DIABETES CONTROL 04/11/20 24 Active clobetasoL (TEMOVATE) 0.05 % creamIndications :Skin Inflammation Apply 1 Application topically daily as needed 05/14/19 25 Active sildenafiL, pulm.hypertensio n, (REVATIO) 20 mg tablet Take 1 tablet (20 mg total) by mouth as needed 05/07/19 25 Active UNABLE TO FINDIndications: prostate health supplement Take 1 each by mouth every morning Med Name: Super Beta Prostate Advance tablet Active flecainide (TAMBOCOR) 50 mg tabletIndication s:Paroxysmal Atrial Fibrillation Take 1 tablet (50 mg total) by mouth as needed Take as needed if unable to make Afib stop Active ibuprofen 200 mg tab/capIndicatio ns:Pain Take 1 tablet/capsule (200 mg total) by mouth every 6 (six) hours as needed for pain Active apixaban (ELIQUIS) 5 mg tabletIndication s:atrial fibrillation HOLD FOR 4 WEEKS. YOU MAY RESUME 07/2306/26/19 Active rosuvastatin (CRESTOR) 40 mg tabletIndication s:hyperlipidemia Take 1 tablet (40 mg total) by mouth nightly Stopped due to muscle weakness on 06/06 30 tablet 2 06/26/19 25 Active Additional Information Patient taking differently: 5 mgoral Nightly, Stopped due to muscle weakness on 06/06, Indications: hyperlipidemia, Reported on 08/28/2024 lysine 500 mg tabletIndication s:supplement Take 1 tablet (500 mg total) by mouth every morning Discontin ued(Patie nt Reported) magnesium oxide (MAG-OX) 400 mg (241.3 mg elemental magnesium) tabletIndication s:hypomagnesemia Take 1 tablet (400 mg total) by mouth every morning 025 Discontin ued(Patie nt Reported) Lactobacillus acidophilus (PROBIOTIC ORAL)Indications :GI health supplement Take 1 capsule by mouth every morning 025 Discontin ued(Patie nt Reported) docusate sodium (COLACE) 100 mg capsuleIndicatio ns:constipation, Stool Softener Take 1 capsule (100 mg total) by mouth 2 (two) times a day 60 capsule 06/26/19 25 025 Discontin ued(Thera py completed ) acetaminophen (TYLENOL) 325 mg tabletIndication s:Fever Take 2 tablets (650 mg total) by mouth every 4 (four) hours as needed for pain 06/26/19 25 025 Discontin ued(Thera py completed ) aspirin 325 mg tablet DISCONTINUE THIS MEDICATION WHEN YOU START ELIQUIS ON 07/2306/26/19 25 025 Discontin ued(Thera py completed ) ezetimibe (ZETIA) 10 mg tablet Take 1 tablet (10 mg total) by mouth nightly at bedtime. 06/27/19 25 025 Discontin ued(Thera py completed ) Active Problems Problem Noted Date Diagnosed Date Carotid stenosis, left 06/24/2024 Stenosis of left carotid artery 06/13/2024 Occlusion and stenosis of left vertebral artery 06/13/2024 Stroke, acute, embolic 05/26/2024 Numbness and tingling of left upper extremity Hyperlipidemia 09/06/2013 Overview (08/04/2017): Description: unRxed LDL 136, HDL 36. Impression: start lipitor 20 given current lipid guidelines. Chest pain 07/23/2013 Overview (08/04/2017): Impression: Check stress EKG. Dont overdo till this is figured out. Restart prilosec at 40. Reiterated earlier recs to quit cig. Notalgia 06/19/2013 Indigestion 05/06/2013 Dyspnea Encounters Date Type Department Care Team Description 08/28/2024 10:30 AM CDT Office Visit [facility] Neurology [address] [facility] [address], [address] [place] [address] Deepti Che NP Stroke, acute, embolic (HCC) (Primary Dx); Paroxysmal atrial fibrillation (HCC); Hyperlipidemia with target LDL less than 70; HTN, goal below 130/80; Type 2 diabetes mellitus with hyperglycemia, without long-term current use of insulin (HCC); LINUS (obstructive sleep apnea); Stenosis of left carotid artery; History of CEA (carotid endarterectomy) 08/01/2024 9:00 AM CDT Office Visit [facility] Neurosurgery [address] [place] [address] 6th [place] [address] [place] [address] Polo Eastman MD Stenosis of left carotid artery (Primary Dx) 08/01/2024 Telephone [facility] [address] [place] [address] [place] [address] Polo Eastman MD 07/17/2024 Telephone [facility]surgery [facility] 6th [place] [address] [place] [address] Polo Eastman MD 07/16/2024 8:24 PM CDT - 07/16/2024 11:59 PM CDT Hospital Encounter [facility] [address] [place] [address] Discharge Disposition: Discharge to home or self care 06/24/2024 4:48 PM [employer] Anesthesia Event [facility] Operating Room [address] [place] [address] Nikki Conley MD Montes de Oca Angarita, Arianna, MD 06/24/2024 4:30 PM [employer] - 06/24/2024 8:50 PM [employer] Surgery [facility] Operating Room [address] [place] [address] Polo Eastman MD Endarterectomy - Carotid 06/24/2024 1:24 PM [employer] - 06/25/2024 1:49 PM [employer] Hospital Encounter [address] [address] Polo Eastman MD Occlusion and stenosis of left vertebral artery Discharge Disposition: Discharge to home or self care 06/20/2024 8:30 AM [employer] Pre-Admission Testing [facility] Center for Preoperative Assessment and Planning [place] ([facility]) [address] [place] [phone] Preoperative testing (Primary Dx); Stenosis of left carotid artery 06/13/2024 [facility] Post Discharge Follow up phone call [address] [address] Michelle Luis, MADINA 06/13/2024 Orders Only [facility] [address] [facility] 6th [place] [address] [place] [phone] Polo Eastman MD from Last 3 Months Immunizations Immunization Administration Dates Next Due Hep A / Hep B 03/20/2013,03/19/2012 Hep B Vaccine 05/04/2012 Influenza, Quadrivalent, Spl it, Preservative Free, Intramuscular 04/11/2022 Influenza, Trivalent, Preservative Free, Intramu scular 03/19/2012 Tdap 06/12/2022,03/19/2012 ZOSTER Recombinant 06/04/2021,10/28/2020 Surgical History Surgery Date Site/Laterality Comments COLONOSCOPY Medical History Medical History Date Comments Hypertension Chronic diarrhea Colon polyp Family History Medical History Relation Name Comments Colon cancer Mother Family history of colon cancer - (Added by TW Conv) Heart disease Mother Family history of cardiac disorder - (Added by Conv) Kidney failure Mother Family histor y of renal failure - (Added by Conv) Kidney failure Sister Family histor y of renal failure - (Added by Conv) Anesthesia problems Neg Hx Relation Name Status Comments Mother Sister Social History Tobacco Use Types Packs/Day Years Used Date Smoking Tobacco: Former Cigarettes 1 37 1 981 - 2017 Smokeless Tobacco: Never Tobacco Cessation:Counseling Given: Not Answered Alcohol Use Standard Drinks/Week Comments Yes 0 (1 standard drink = 0.6 oz pur e alcohol) 3-5 drinks per day AUDIT-C Answer Date Recorded Q1: How often do you have a drink containing alcohol? Never 08/01/2024 Q2: How many drinks containi ng alcohol do you have on a typical day when you are drinking? Patient does not drink Q3: How often do you have si x or more drinks on one occasion? Never 08/01/2024 PHQ-2 Answer Date Recorded PHQ-2 Total Score (If total score is 3 or more points, staff should administer the PHQ-9) 0 05/28/2024 Personal Safety Answer Date Recorded Have you ever been in or are you currently in a harmful physical or emotional relationship or is someone making you feel afraid or unsafe? Denies 06/24/2024 Sex and Gender Information Value Date Recorded Sex Assigned at Not on file Legal Sex Male 7:45 PM [employer] Gender Identity Not on file Sexual Orientation Not on file Obstetrics History Last Filed Vital Signs Vital Sign Reading Time Taken Comments Blood Pressure 132/91 08/28/2024 10:39 AM CDT Pulse 55 08/28/2024 10:39 AM CDT Temperature 36.8 C (98.2 F) 08/28/2024 10:39 AM CDT Respiratory Rate 14 06/25/2024 9:25 AM [employer] Oxygen Saturation 98% 06/25/2024 9:40 AM [employer] Inhaled Oxygen Concentration - - Weight 100.5 kg (221 lb 9.6 oz) 05/07/2 025 10:39 AM CDT Height 172.7 cm (5' 8 ) 08/28/2024 10:3 9 AM CDT Body Mass Index 33.69 08/28/2024 10:39 AM CDT Plan of Treatment Health Maintenance Due Date Last Done Comments Albumin Creatinine Ratio, Urine 1960 Hepatitis C Screening 1960 Prostate Cancer Screening-PSA 1960 Dilated Eye Exam 1960 Foot Exam 1960 Regular Well Visit/Exam 18-64 1980 Pneumococcal vaccine <65 (1 of 2 - PCV) 1981 Lung Cancer Screening 2012 Covid-19 Vaccine (3 - 2023-2 5 season) 2023 10/02/2020, 09/11/2020 Hemoglobin A1C 11/23/2024 05/26/2024 Influenza Vaccine (Season Ended) 2024 04/11/20 22, 03/19/2012 Depression Screening 05/26/2025 05/26/2024 Lipid Panel 05/27/2025 05/27/2024 eGFR 06/24/2025 06/24/2024, 05/26, 05/27/2024, Additional history exists Colon Cancer Screening-Colonoscopy 07/23/2028 07/23/2018, 02/04/2013 DTaP/Tdap/Td Vaccine (3 - Td or Tdap) 06/12/2032 06/12/2022, 03/19/2012 Hepatitis B Screening Completed 03/20/2013 , 05/04/2012, 03/19/2012 Colon Cancer Screening-CT Colonography Discontinued 07/23/2018, 02/04/2013 Colon Cancer Screening-DNA Stool Discontinued 07/24/19 19, 02/04/2013 Colon Cancer Screening-FIT Discontinued 07/23/2018, Colon Cancer Screening-Sigmoidoscopy Discontinued 07/23/2018, 02/04/2013 Zoster Vaccine Completed 06/04/2021, 10/28/2020 Procedures Procedure Name Priority Date/Time Associated Diagnosis Comments NEURO MR OUTSIDE REFERENCE Routine 07/16/2024 8:24 PM CDT ECG 12-LEAD Routine 06/25/2024 3:28 AM [employer] POCT GLUCOSE DEVICE Routine 06/24/2024 9 :12 PM [employer] EGFR Routine 06/24/2024 9:05 PM [employer] DIFFERENTIAL AUTO Routine 06/24/2024 9:0 5 PM [employer] CBC WITH AUTO DIFFERENTIAL Routine 06/24/2024 9:05 PM [employer] BASIC METABOLIC PANEL Routine 06/24/2024 9:05 PM [employer] VASCULAR SURGERY PROCEDURE Routine 06/24/2024 8:55 PM [employer] Occlusion and stenosis of left vertebral artery POCT ACTIVATED CLOTTING TIME, LOW RANGE Routine 06/24/2024 8:07 PM [employer] POCT ACTIVATED CLOTTING TIME, LOW RANGE Routine 06/24/2024 7:24 PM [employer] POCT ACTIVATED CLOTTING TIME, LOW RANGE Routine 06/24/2024 6:57 PM [employer] POCT ACTIVATED CLOTTING TIME, LOW RANGE Routine 06/24/2024 6:30 PM [employer] POCT ACTIVATED CLOTTING TIME, LOW RANGE Routine 06/24/2024 6:21 PM [employer] POCT GLUCOSE DEVICE Routine 06/24/2024 5 :46 PM [employer] PERIPHERAL LINE Routine 06/24/2024 5:23 PM [employer] ANESTHESIA ARTERIAL LINE PLACEMENT Routine 06/24/2024 5:23 PM [employer] ANESTHESIA INTUBATION Routine 06/24/2024 5:21 PM [employer] POCT GLUCOSE DEVICE Routine 06/24/2024 2 :04 PM [employer] EGFR Routine 06/20/2024 10:39 AM [employer] Stenosis of left carotid artery DIFFERENTIAL AUTO Routine 06/20/2024 10: 39 AM [employer] Stenosis of left carotid artery CBC WITH AUTO DIFFERENTIAL Routine 06/20/2024 10:39 AM [employer] Stenosis of left carotid artery CPAP APTT ALGORITHM Routine 06/20/2024 1 0:39 AM [employer] Stenosis of left carotid artery PROTIME-INR Routine 06/20/2024 10:39 AM [employer] Stenosis of left carotid artery BASIC METABOLIC PANEL Routine 06/20/2024 10:39 AM [employer] Stenosis of left carotid artery TYPE AND SCREEN 14 DAY Routine 06/20/2024 10:39 AM [employer] Preoperative testing URINALYSIS AND REFLEX TO MICROSCOPIC AND CULTURE Routine 06/20/2024 10:39 AM [employer] Stenosis of left carotid artery LIPID PANEL STAT 05/27/2024 8:38 PM [employer] HEMOGLOBIN A1C STAT 05/26/2024 4:48 PM [employer] COLONOSCOPY 07/23/2018 1:31 PM CDT from Last 3 Months or Most Recently Relevant to Health Maintenance Results * Neuro MR Outside Reference (07/16/2024 8:24 PM CDT) Impressions [facility] - 07/16/2024 8:24 PM CDT These images are for Reference purposes only and have not been reviewed by [facility]. There will be no report generated by a [facility] Radiologist. Narrative [facility] - 07/16/2024 8:24 PM CDT EXAMINATION: Images For Reference Purposes Only us Polo Eastman MD IMG MRI PROCEDURES Fin al Result [facility]ACS[facility] * ECG 12 lead (06/25/2024 3:28 AM [employer]) Pathologist [facility] Ventricular Rate EKG/Min 66 BPM [facility] Atrial Rate 66 BPM [facility] WA-Interval (MSEC) 224 ms [facility] QRS-Interval (MSEC) 80 ms [facility] QT-Interval (MSEC) 396 ms [facility] QTc 415 ms [facility] P [place] 40 degrees [facility] R [place] 15 degrees [facility] T [place] 36 degrees [facility] Diagnosis Sinus rhythm with 1st degree A-V block Otherwise normal ECG When compared with ECG of 26-MAY-2024 16:47, No significant change was found Confirmed by FELICIA PALACIOS M.D ([id number]) on 06/25/2024 11:13:59 AM [facility] 06/25/2024 3:28 AM [employer] 06/25/2024 11:13 AM [employer] Polo Eastman MD ECG ORDERABLES Final Result [facility] * POCT glucose (06/24/2024 9:12 PM [employer]) [facility] Glucose, POC 76 70 - 199 mg/dL Blood 06/24/2024 9:12 PM [employer] 06/24/2024 9:12 PM [employer] Polo Eastman MD LAB POCT ORDERABLES - DEVICE Final Result [facility] Department [place] [address] * eGFR (06/24/2024 9:05 PM [employer]) [facility] eGFR 70 >=60 mL/min/1. 73 m2 Comment: Interpretive Data Reference Interval Normal >/= 90 mL/min/1.73m2 Mildly decreased* 60 - 89 mL/min/1.73m2 Mildly to moderately decreased 45 - 59 mL/min/1.73m2 Moderately to severely decreased 30 - 44 mL/min/1.73m2 Severely decreased 15 - 29 mL/min/1.73m2 Kidney Failure < 15 mL/min/1.73m2 *Relative to young adult level Estimated glomerular filtration rate is determined by the 2020 CKD-EPI equation recommended by the National Kidney Foundation (A Unifying Approach to GFR Estimation: Recommendations of the NKF-ASK Task Force on Reassessing the Inclusion of Race in Diagnosing Kidney Disease, JASN 202). The CKD-EPI equation should not be used for patients with unstable renal function and has not been validated in children and those over 70. Current interpretive data was last reviewed 2021. Blood 06/24/2024 9:05 PM [employer] 06/24/2024 9:21 PM [employer] Polo Eastman MD LAB BLOOD ORDERABLES F inal Result [facility] Department [place] [address] * (ABNORMAL) Differential, auto (06/24/2024 9:05 PM [employer]) Neutrophil abs 6.6(H) 1.5 - 6.5 K/cumm Imm gran abs 0.1 0.0 - 0.1 K/cumm [facility] Lymphocyte abs 1.2 0.8 - 3.3 K/cumm [facility] Monocyte abs 0.2 0.2 - 0.8 K/cumm [facility] Eosinophil abs 0.1 0.0 - 0.5 K/cumm [facility] Basophil abs 0.1 0.0 - 0.1 K/cumm [facility] Neutrophil pct 81.3 % [facility] Comment: Interpretive Data Percent cell count reference ranges are not reported, since discordance with absolute values may lead to misinterpretation of CBC data. Current Interpretive Data was last revised on 2017. Imm gran pct 0.6 % [facility] Comment: Interpretive Data Percent cell count reference ranges are not reported, since discordance with absolute values may lead to misinterpretation of CBC data. Current Interpretive Data was last revised on 2017. Lymphocyte pct 14.3 % [facility] Comment: Interpretive Data Percent cell count reference ranges are not reported, since discordance with absolute values may lead to misinterpretation of CBC data. Current Interpretive Data was last revised on 2017. Monocyte pct 2.2 % [facility] Comment: Interpretive Data Percent cell count reference ranges are not reported, since discordance with absolute values may lead to misinterpretation of CBC data. Current Interpretive Data was last revised on 2017. Eosinophil pct 1.0 % [facility] Comment: Interpretive Data Percent cell count reference ranges are not reported, since discordance with absolute values may lead to misinterpretation of CBC data. Current Interpretive Data was last revised on 2017. Basophil pct 0.6 % [facility] Comment: Interpretive Data Percent cell count reference ranges are not reported, since discordance with absolute values may lead to misinterpretation of CBC data. Current Interpretive Data was last revised on 2017. Blood 06/24/2024 9:05 PM [employer] 06/24/2024 9:22 PM [employer] Polo Eastman MD LAB BLOOD ORDERABLES F inal Result [facility] Department [place] [address] * CBC with auto differential (06/24/2024 9:05 PM [employer]) WBC 8.2 3.8 - 9.9 K/cumm Hgb 14.9 13.0 - 17.5 g/dL [facility] Hct 42.5 38.9 - 50.3 % [facility] Plt 228 150 - 400 K/cumm [facility] MPV 9.6 9.1 - 12.3 fL [facility] RBC 4.92 4.30 - 5.80 M/cumm [facility] MCV 86.4 81.3 - 96.4 fL [facility] MCH 30.3 27.1 - 33.3 pg [facility] MCHC 35.1 32.3 - 35.7 g/dL [facility] RDW CV 12.3 11.1 - 14.9 % [facility] RDW SD 39.2 35.7 - 48.1 fL [facility] NRBC abs 0.00 0.00 - 0.01 K/cumm [facility] Blood 06/24/2024 9:05 PM [employer] 06/24/2024 9:22 PM [employer] Polo Eastman MD LAB BLOOD ORDERABLES F inal Result [facility] Department [place] [address] * Basic metabolic panel (06/24/2024 9:05 PM [employer]) Sodium 139 135 - 145 mmol/L Potassium, pl 4.5 3.3 - 4.9 mmol/L [facility] Chloride 106 97 - 110 mmol/L [facility] CO2 25 22 - 32 mmol/L [facility] Anion gap 8 2 - 15 mmol/L [facility] BUN 10 6 - 25 mg/dL [facility] Creatinine 1.17 0.80 - 1.30 mg/dL [facility] Glucose 162 70 - 199 mg/dL [facility] Comment: Interpretive Data Fasting glucose >/= 126 mg/dl is diagnostic for diabetes. Fasting is defined as no caloric intake for at least 8 hours. Fasting glucose between 100 mg/dl to 125 mg/dl is diagnostic of prediabetes. In a patient with classic symptoms of hyperglycemia or hyperglycemic crisis, a random glucose >/= 200 mg/dl is diagnostic for diabetes. In the absence of unequivocal hyperglycemia, results should be confirmed by repeat testing. The classification and Diagnosis of Diabetes Diabetes Care 2021; 46: S19-S40. Current interpretive data was last revised 2022. Calcium 9.4 8.5 - 10.3 mg/dL [facility] Blood 06/24/2024 9:05 PM [employer] 06/24/2024 9:21 PM [employer] Polo Eastman MD LAB BLOOD ORDERABLES F inal Result [facility] [place] [address] * ENDARTERECTOMY - CAROTID (06/24/2024 8:55 PM [employer]) Anatomical Region Laterality Modality X-Ray Angiograph y Narrative 06/24/2024 9:46 PM [employer] Please see OpNote for result. Polo Eastman MD CV CARDIAC CATH PROCED URES Final Result * (ABNORMAL) POCT Activated clotting time, low range (06/24/2024 8:07 PM [employer]) ACT 231(H) 123 - 168 sec POC Performer [id number] [facility] POC Device Number [id number] [facility] Blood 06/24/2024 8:07 PM [employer] 06/24/2024 8:07 PM [employer] Polo Eastman MD LAB POCT ORDERABLES - DEVICE Final Result Performing Organization Address [facility]/ZIP Co de Phone Number [facility] [place] [address] * (ABNORMAL) POCT Activated clotting time, low range (06/24/2024 7:24 PM [employer]) ACT 237(H) 123 - 168 sec POC Performer [id number] [facility] POC Device Number [id number] [facility] Blood 06/24/2024 7:24 PM [employer] 06/24/2024 7:24 PM [employer] Polo Eastman MD LAB POCT ORDERABLES - DEVICE Final Result Performing Organization Address City/[facility]/ZIP Co de Phone Number [facility] [place] [address] * (ABNORMAL) POCT Activated clotting time, low range (06/24/2024 6:57 PM [employer]) ACT 247(H) 123 - 168 sec POC Performer [id number] [facility] POC Device Number [id number] [facility] Blood 06/24/2024 6:57 PM [employer] 06/24/2024 6:57 PM [employer] Polo Eastman MD LAB POCT ORDERABLES - DEVICE Final Result Performing Organization Address [facility] Co de Phone Number [facility] [place] [address] * (ABNORMAL) POCT Activated clotting time, low range (06/24/2024 6:30 PM [employer]) ACT 305(H) 123 - 168 sec POC Performer [id number] [facility] POC Device Number [id number] [facility] Blood 06/24/2024 6:30 PM [employer] 06/24/2024 6:30 PM [employer] us Polo Eastman MD LAB POCT ORDERABLES - DEVICE Final Result Performing Organization Address [facility] de Phone Number [facility] [place] [address] * POCT Activated clotting time, low range (06/24/2024 6:21 PM [employer]) ACT 142 123 - 168 sec POC Performer [id number] [facility] POC Device [facility] [id number] [facility] Blood 06/24/2024 6:21 PM [employer] 06/24/2024 6:21 PM [employer] Polo Eastman MD LAB POCT ORDERABLES - DEVICE Final Result Performing Organization Address City/[facility] Co de Phone Number [facility] Department [place] [address] * POCT glucose (06/24/2024 5:46 PM [employer]) Glucose, POC 91 70 - 199 mg/dL Blood [id number]|2024-09-03 09:09:00|2024-09-03 09:08:00|XMS_ITS|BKG DAEMON|External Medical Summaries|[id number]|" Referral Summary Created on: September 03, 2024 Rick Reeves : 1960 Sex: Male Author Organization [facility] Address [address] [place] [address] Care Team Providers Care Labor Employment Associate Name Role Phone Tavo Pickens MD Primary Care Provider [phone] Encounters Date Type Department Care Team Description 08/28/2024 10:30 AM CDT Office Visit [facility] Neurology [address] [facility] [address], [address] [place] [address] Deepti Che NP Stroke, acute, embolic (HCC) (Primary Dx); Paroxysmal atrial fibrillation (HCC); Hyperlipidemia with target LDL less than 70; HTN, goal below 130/80; Type 2 diabetes mellitus with hyperglycemia, without long-term current use of insulin (HCC); LINUS (obstructive sleep apnea); Stenosis of left carotid artery; History of CEA (carotid endarterectomy) 08/01/2024 Telephone [facility] Neurosurgery [address] [place] [address] [place] [address] Polo Eastman MD 08/01/2024 9:00 AM CDT Office Visit [facility] Neurosurgery [address] [place] [address] [place] [address] Polo Eastman MD Stenosis of left carotid artery (Primary Dx) 07/17/2024 Telephone [facility] Neurosurgery [address] [place] [address] [place] [address] Polo Eastman MD 07/16/2024 8:24 PM CDT - 07/16/2024 11:59 PM CDT Hospital Encounter [facility] [place] [facility] [address] [place] [address] Discharge Disposition: Discharge to home or self care 06/24/2024 1:24 PM [employer] - 06/25/2024 1:49 PM [employer] Hospital Encounter [address] [address] Polo Eastman MD Occlusion and stenosis of left vertebral artery Discharge Disposition: Discharge to home or self care 06/24/2024 4:30 PM [employer] - 06/24/2024 8:50 PM [employer] Surgery [facility] Operating Room [address] [place] [address] Polo Eastman MD Endarterectomy - Carotid 06/24/2024 4:48 PM [employer] Anesthesia Event [facility] Operating Room [address] [place] [address] Nikki Conley MD Montes de Oca Angarita, Arianna, MD 06/20/2024 8:30 AM [employer] Pre-Admission Testing [facility] [address] [place] [address], [place] [address] Preoperative testing (Primary Dx); Stenosis of left carotid artery 06/13/2024 [facility] Post Discharge Follow up phone call [facility] [address] [facility] [place] [phone] Michelle Luis RN 06/13/2024 Orders Only [facility] Neurosurgery [address] [facility] Advanced [facility] [address] [place] [address] [place] [phone] Polo Eastman MD from Last 3 Months Allergies Active Allergy Reactions Criticality Noted Date Comments Penicillins Hives,Other (See comments) High Reaction: Hives, Throat Swelling, Medications metoprolol XL (TOPROL-XL) 25 mg extended release tabletIndication s:hypertension Take 1 tablet (25 mg total) by mouth every morning Active OneTouch Ultra Test strip USE DIRECTED TWICE DAILY TO MONITOR DIABETES 04/11/20 24 Active OneTouch Ultra2 Meter misc USE DIRECTED TO MONITOR DIABETES CONTROL 04/11/20 24 Active clobetasoL (TEMOVATE) 0.05 % creamIndications :Skin Inflammation Apply 1 Application topically daily as needed 05/14/19 25 Active sildenafiL, pulm.hypertensio n, (REVATIO) 20 mg tablet Take 1 tablet (20 mg total) by mouth as needed 05/07/19 25 Active UNABLE TO FINDIndications: prostate health supplement Take 1 each by mouth every morning Med Name: Super Beta Prostate Advance tablet Active flecainide (TAMBOCOR) 50 mg tabletIndication s:Paroxysmal Atrial Fibrillation Take 1 tablet (50 mg total) by mouth as needed Take as needed if unable to make Afib stop Active ibuprofen 200 mg tab/capIndicatio ns:Pain Take 1 tablet/capsule (200 mg total) by mouth every 6 (six) hours as needed for pain Active apixaban (ELIQUIS) 5 mg tabletIndication s:atrial fibrillation HOLD FOR 4 WEEKS. YOU MAY RESUME 07/2306/26/19 25 Active rosuvastatin (CRESTOR) 40 mg tabletIndication s:hyperlipidemia Take 1 tablet (40 mg total) by mouth nightly Stopped due to muscle weakness on 06/06 30 tablet 2 06/26/19 25 025 Active Additional Information Patient taking differently: 5 mgoral Nightly, Stopped due to muscle weakness on 06/06, Indications: hyperlipidemia, Reported on 08/28/2024 lysine 500 mg tabletIndication s:supplement Take 1 tablet (500 mg total) by mouth every morning 025 Discontin ued(Patie nt Reported) magnesium oxide (MAG-OX) 400 mg (241.3 mg elemental magnesium) tabletIndication s:hypomagnesemia Take 1 tablet (400 mg total) by mouth every morning 025 Discontin ued(Patie nt Reported) Lactobacillus acidophilus (PROBIOTIC ORAL)Indications :GI health supplement Take 1 capsule by mouth every morning 025 Discontin ued(Patie nt Reported) docusate sodium (COLACE) 100 mg capsuleIndicatio ns:constipation, Stool Softener Take 1 capsule (100 mg total) by mouth 2 (two) times a day 60 capsule 06/26/19 25 025 Discontin ued(Thera py completed ) acetaminophen (TYLENOL) 325 mg tabletIndication s:Fever Take 2 tablets (650 mg total) by mouth every 4 (four) hours as needed for pain 06/26/19 25 025 Discontin ued(Thera py completed ) aspirin 325 mg tablet DISCONTINUE THIS MEDICATION WHEN YOU START ELIQUIS ON 07/2306/26/19 25 025 Discontin ued(Thera py completed ) ezetimibe (ZETIA) 10 mg tablet Take 1 tablet (10 mg total) by mouth nightly at bedtime. 06/27/19 25 025 Discontin ued(Thera py completed ) Active Problems Problem Noted Date Diagnosed Date Carotid stenosis, left 06/24/2024 Stenosis of left carotid artery 06/13/2024 Occlusion and stenosis of left vertebral artery 06/13/2024 Stroke, acute, embolic 05/26/2024 Numbness and tingling of left upper extremity Hyperlipidemia 09/06/2013 Overview (08/04/2017): Description: unRxed LDL 136, HDL 36. Impression: start lipitor 20 given current lipid guidelines. Chest pain 07/23/2013 Overview (08/04/2017): Impression: Check stress EKG. Dont overdo till this is figured out. Restart prilosec at 40. Reiterated earlier recs to quit cig. Notalgia 06/19/2013 Indigestion 05/06/2013 Dyspnea Immunizations Immunization Administration Dates Next Due Hep A / Hep B 03/20/2013,03/19/2012 Hep B Vaccine 05/04/2012 Influenza, Quadrivalent, Spl it, Preservative Free, Intramuscular 04/11/2022 Influenza, Trivalent, Preservative Free, Intramu scular 03/19/2012 Tdap 06/12/2022,03/19/2012 ZOSTER Recombinant 06/04/2021,10/28/2020 Social History Tobacco Use Types Packs/Day Years Used Date Smoking Tobacco: Former Cigarettes 1 37 1 981 - 2017 Smokeless Tobacco: Never Tobacco Cessation:Counseling Given: Not Answered Alcohol Use Standard Drinks/Week Comments Yes 0 (1 standard drink = 0.6 oz pur e alcohol) 3-5 drinks per day AUDIT-C Answer Date Recorded Q1: How often do you have a drink containing alcohol? Never 08/01/2024 Q2: How many drinks containi ng alcohol do you have on a typical day when you are drinking? Patient does not drink Q3: How often do you have si x or more drinks on one occasion? Never 08/01/2024 PHQ-2 Answer Date Recorded PHQ-2 Total Score (If total score is 3 or more points, staff should administer the PHQ-9) 0 05/28/2024 Personal Safety Answer Date Recorded Have you ever been in or are you currently in a harmful physical or emotional relationship or is someone making you feel afraid or unsafe? Denies 06/24/2024 Sex and Gender Information Value Date Recorded Sex Assigned at Not on file Legal Sex Male 7:45 PM [employer] Gender Identity Not on file Sexual Orientation Not on file Last Filed Vital Signs Vital Sign Reading Time Taken Comments Blood Pressure 132/91 08/28/2024 10:39 AM CDT Pulse 55 08/28/2024 10:39 AM CDT Temperature 36.8 C (98.2 F) 08/28/2024 10:39 AM CDT Respiratory Rate 14 06/25/2024 9:25 AM [employer] Oxygen Saturation 98% 06/25/2024 9:40 AM [employer] Inhaled Oxygen Concentration - - Weight 100.5 kg (221 lb 9.6 oz) 025 10:39 AM CDT Height 172.7 cm (5' 8 ) 08/28/2024 10:3 9 AM CDT Body Mass Index 33.69 08/28/2024 10:39 AM CDT Plan of Treatment Not on file Procedures Procedure Name Priority Date/Time Associated Diagnosis Comments NEURO MR OUTSIDE REFERENCE Routine 07/16/2024 8:24 PM CDT ECG 12-LEAD Routine 06/25/2024 3:28 AM [employer] POCT GLUCOSE DEVICE Routine 06/24/2024 9 :12 PM [employer] EGFR Routine 06/24/2024 9:05 PM [employer] DIFFERENTIAL AUTO Routine 06/24/2024 9:0 5 PM [employer] CBC WITH AUTO DIFFERENTIAL Routine 06/24/2024 9:05 PM [employer] BASIC METABOLIC PANEL Routine 06/24/2024 9:05 PM [employer] VASCULAR SURGERY PROCEDURE Routine 06/24/2024 8:55 PM [employer] Occlusion and stenosis of left vertebral artery POCT ACTIVATED CLOTTING TIME, LOW RANGE Routine 06/24/2024 8:07 PM [employer] POCT ACTIVATED CLOTTING TIME, LOW RANGE Routine 06/24/2024 7:24 PM [employer] POCT ACTIVATED CLOTTING TIME, LOW RANGE Routine 06/24/2024 6:57 PM [employer] POCT ACTIVATED CLOTTING TIME, LOW RANGE Routine 06/24/2024 6:30 PM [employer] POCT ACTIVATED CLOTTING TIME, LOW RANGE Routine 06/24/2024 6:21 PM [employer] POCT GLUCOSE DEVICE Routine 06/24/2024 5 :46 PM [employer] PERIPHERAL LINE Routine 06/24/2024 5:23 PM [employer] ANESTHESIA ARTERIAL LINE PLACEMENT Routine 06/24/2024 5:23 PM [employer] ANESTHESIA INTUBATION Routine 06/24/2024 5:21 PM [employer] POCT GLUCOSE DEVICE Routine 06/24/2024 2 :04 PM [employer] EGFR Routine 06/20/2024 10:39 AM [employer] Stenosis of left carotid artery DIFFERENTIAL AUTO Routine 06/20/2024 10: 39 AM [employer] Stenosis of left carotid artery CBC WITH AUTO DIFFERENTIAL Routine 06/20/2024 10:39 AM [employer] Stenosis of left carotid artery CPAP APTT ALGORITHM Routine 06/20/2024 1 0:39 AM [employer] Stenosis of left carotid artery PROTIME-INR Routine 06/20/2024 10:39 AM [employer] Stenosis of left carotid artery BASIC METABOLIC PANEL Routine 06/20/2024 10:39 AM [employer] Stenosis of left carotid artery TYPE AND SCREEN 14 DAY Routine 06/20/2024 10:39 AM [employer] Preoperative testing URINALYSIS AND REFLEX TO MICROSCOPIC AND CULTURE Routine 06/20/2024 10:39 AM [employer] Stenosis of left carotid artery LIPID PANEL STAT 05/27/2024 8:38 PM [employer] HEMOGLOBIN A1C STAT 05/26/2024 4:48 PM [employer] COLONOSCOPY 07/23/2018 1:31 PM CDT from Last 3 Months or Most Recently Relevant to Health Maintenance Results * Neuro MR Outside Reference (07/16/2024 8:24 PM CDT) Impressions HARRIET - 07/16/2024 8:24 PM CDT These images are for Reference purposes only and have not been reviewed by [facility]. There will be no report generated by a [facility] Radiologist. Narrative HARRIET - 07/16/2024 8:24 PM CDT EXAMINATION: Images For Reference Purposes Only Polo Eastman MD IMG MRI PROCEDURES Fin al Result Performing Organization Address City/[facility]/ZIP Co de Phone Number [email or web address] * ECG 12 lead (06/25/2024 3:28 AM [employer]) Ventricular Rate EKG/Min 66 BPM [facility] Atrial Rate 66 BPM [facility] WA-Interval (MSEC) 224 ms [facility] QRS-Interval (MSEC) 80 ms [facility] QT-Interval (MSEC) 396 ms [facility] QTc 415 ms [facility] P [place] 40 degrees [facility] R [place] 15 degrees [facility] T [place] 36 degrees [facility] Diagnosis Sinus rhythm with 1st degree A-V block Otherwise normal ECG When compared with ECG of 26-MAY-2024 16:47, No significant change was found Confirmed by FELICIA PALACIOS M.D (2023) on 06/25/2024 11:13:59 AM [facility] 06/25/2024 3:28 AM [employer] 06/25/2024 11:13 AM [employer] Polo Eastman MD ECG ORDERABLES Final Result [facility] * POCT glucose (06/24/2024 9:12 PM [employer]) Glucose, POC 76 70 - 199 mg/dL Blood 06/24/2024 9:12 PM [employer] 06/24/2024 9:12 PM [employer] Polo Eastman MD LAB POCT ORDERABLES - DEVICE Final Result Performing Organization Address [facility] Co de Phone Number [facility] Department [place] [address] * eGFR (06/24/2024 9:05 PM [employer]) eGFR 70 >=60 mL/min/1. 73 m2 Comment: Interpretive Data Reference Interval Normal >/= 90 mL/min/1.73m2 Mildly decreased* 60 - 89 mL/min/1.73m2 Mildly to moderately decreased 45 - 59 mL/min/1.73m2 Moderately to severely decreased 30 - 44 mL/min/1.73m2 Severely decreased 15 - 29 mL/min/1.73m2 Kidney Failure < 15 mL/min/1.73m2 *Relative to young adult level Estimated glomerular filtration rate is determined by the 2020 CKD-EPI equation recommended by the National Kidney Foundation (A Unifying Approach to GFR Estimation: Recommendations of the NKF-ASK Task Force on Reassessing the Inclusion of Race in Diagnosing Kidney Disease, JASN 2020). The CKD-EPI equation should not be used for patients with unstable renal function and has not been validated in children and those over 70. Current interpretive data was last reviewed 2021. Blood 06/24/2024 9:05 PM [employer] 06/24/2024 9:21 PM [employer] Polo Eastman MD LAB BLOOD ORDERABLES F inal Result Performing Organization Address [facility] Co de Phone Number MINGO [facility] Department [place] [address] * (ABNORMAL) Differential, auto (06/24/2024 9:05 PM [employer]) Pathologist [facility] Neutrophil abs 6.6(H) 1.5 - 6.5 K/cumm Imm gran abs 0.1 0.0 - 0.1 K/cumm [facility] Lymphocyte abs 1.2 0.8 - 3.3 K/cumm [facility] Monocyte abs 0.2 0.2 - 0.8 K/cumm [facility] Eosinophil abs 0.1 0.0 - 0.5 K/cumm [facility] Basophil abs 0.1 0.0 - 0.1 K/cumm [facility] Neutrophil pct 81.3 % [facility] Comment: Interpretive Data Percent cell count reference ranges are not reported, since discordance with absolute values may lead to misinterpretation of CBC data. Current Interpretive Data was last revised on 2017. Imm gran pct 0.6 % [facility] Comment: Interpretive Data Percent cell count reference ranges are not reported, since discordance with absolute values may lead to misinterpretation of CBC data. Current Interpretive Data was last revised on 2017. Lymphocyte pct 14.3 % [facility] Comment: Interpretive Data Percent cell count reference ranges are not reported, since discordance with absolute values may lead to misinterpretation of CBC data. Current Interpretive Data was last revised on 2017. Monocyte pct 2.2 % [facility] Comment: Interpretive Data Percent cell count reference ranges are not reported, since discordance with absolute values may lead to misinterpretation of CBC data. Current Interpretive Data was last revised on 2017. Eosinophil pct 1.0 % [facility] Comment: Interpretive Data Percent cell count reference ranges are not reported, since discordance with absolute values may lead to misinterpretation of CBC data. Current Interpretive Data was last revised on 2017. Basophil pct 0.6 % [facility] Comment: Interpretive Data Percent cell count reference ranges are not reported, since discordance with absolute values may lead to misinterpretation of CBC data. Current Interpretive Data was last revised on 2017. Blood 06/24/2024 9:05 PM [employer] 06/24/2024 9:22 PM [employer] us Polo Eastman MD LAB BLOOD ORDERABLES F inal Result [facility] Department [place] [address] * CBC with auto differential (06/24/2024 9:05 PM [employer]) [facility] WBC 8.2 3.8 - 9.9 K/cumm Hgb 14.9 13.0 - 17.5 g/dL [facility] Hct 42.5 38.9 - 50.3 % [facility] Plt 228 150 - 400 K/cumm [facility] MPV 9.6 9.1 - 12.3 fL [facility] RBC 4.92 4.30 - 5.80 M/cumm [facility] MCV 86.4 81.3 - 96.4 fL [facility] MCH 30.3 27.1 - 33.3 pg [facility] MCHC 35.1 32.3 - 35.7 g/dL [facility] RDW CV 12.3 11.1 - 14.9 % [facility] RDW SD 39.2 35.7 - 48.1 fL [facility] NRBC abs 0.00 0.00 - 0.01 K/cumm [facility] Blood 06/24/2024 9:05 PM [employer] 06/24/2024 9:22 PM [employer] Polo Eastman MD LAB BLOOD ORDERABLES F inal Result [facility] Department [place] [address] * Basic metabolic panel (06/24/2024 9:05 PM [employer]) [facility] Sodium 139 135 - 145 mmol/L Potassium, pl 4.5 3.3 - 4.9 mmol/L [facility] Chloride 106 97 - 110 mmol/L [facility] CO2 25 22 - 32 mmol/L [facility] Anion gap 8 2 - 15 mmol/L [facility] BUN 10 6 - 25 mg/dL [facility] Creatinine 1.17 0.80 - 1.30 mg/dL [facility] Glucose 162 70 - 199 mg/dL [facility] Comment: Interpretive Data Fasting glucose >/= 126 mg/dl is diagnostic for diabetes. Fasting is defined as no caloric intake for at least 8 hours. Fasting glucose between 100 mg/dl to 125 mg/dl is diagnostic of prediabetes. In a patient with classic symptoms of hyperglycemia or hyperglycemic crisis, a random glucose >/= 200 mg/dl is diagnostic for diabetes. In the absence of unequivocal hyperglycemia, results should be confirmed by repeat testing. The classification and Diagnosis of Diabetes Diabetes Care 2021; 46: S19-S40. Current interpretive data was last revised 2022. Calcium 9.4 8.5 - 10.3 mg/dL [facility] Blood 06/24/2024 9:05 PM [employer] 06/24/2024 9:21 PM [employer] Polo Eastman MD LAB BLOOD ORDERABLES F inal Result Performing Organization Address [facility] Co de Phone Number [facility] Department [place] [address] * ENDARTERECTOMY - CAROTID (06/24/2024 8:55 PM [employer]) Anatomical Region Laterality Modality X-Ray Angiograph y Narrative 06/24/2024 9:46 PM [employer] Please see OpNote for result. Polo Eastman MD CV CARDIAC CATH PROCED URES Final Result * (ABNORMAL) POCT Activated clotting time, low range (06/24/2024 8:07 PM [employer]) ACT 231(H) 123 - 168 sec POC Performer [id number] [facility] POC Device Number [id number] [facility] Blood 06/24/2024 8:07 PM [employer] 06/24/2024 8:07 PM [employer] Polo Eastman MD LAB POCT ORDERABLES - DEVICE Final Result Performing Organization Address [facility] Co de Phone Number [facility] Department [place] [address] * (ABNORMAL) POCT Activated clotting time, low range (06/24/2024 7:24 PM [employer]) ACT 237(H) 123 - 168 sec POC Performer [id number] [facility] POC Device Number [id number] [facility] Blood 06/24/2024 7:24 PM [employer] 06/24/2024 7:24 PM [employer] us Polo Eastman MD LAB POCT ORDERABLES - DEVICE Final Result Performing Organization Address City/[facility]/ZIP Co de Phone Number [facility] [place] [address] * (ABNORMAL) POCT Activated clotting time, low range (06/24/2024 6:57 PM [employer]) ACT 247(H) 123 - 168 sec POC Performer [id number] [facility] POC Device Number [id number] [facility] Blood 06/24/2024 6:57 PM [employer] 06/24/2024 6:57 PM [employer] us Polo Eastman MD LAB POCT ORDERABLES - DEVICE Final Result Performing Organization Address [facility] Co de Phone Number [facility] [place] [address] * (ABNORMAL) POCT Activated clotting time, low range (06/24/2024 6:30 PM [employer]) ACT 305(H) 123 - 168 sec POC Performer [id number] [facility] POC Device Number [id number] [facility] Blood 06/24/2024 6:30 PM [employer] 06/24/2024 6:30 PM [employer] us Polo Eastman MD LAB POCT ORDERABLES - DEVICE Final Result Performing Organization Address City/[facility]/ZIP Co de Phone Number [facility] [place] [address] * POCT Activated clotting time, low range (06/24/2024 6:21 PM [employer]) Pathologist [facility] ACT 142 123 - 168 sec POC Performer [id number] [facility] POC Device Number [id number] [facility] Blood 06/24/2024 6:21 PM [employer] 06/24/2024 6:21 PM [employer] Polo Eastman MD LAB POCT ORDERABLES - DEVICE Final Result Performing Organization Address [facility] [place] [address] * POCT glucose (06/24/2024 5:46 PM [employer]) [facility] Glucose, POC 91 70 - 199 mg/dL Blood 06/24/2024 5:46 PM [employer] 06/24/2024 5:46 PM [employer] Result [facility] Polo Eastman MD LAB POCT ORDERABLES - DEVICE Final Result Performing Organization Address City/[facility] [place] [address] * Peripheral IV Catheter (06/24/2024 5:23 PM [employer]) Narrative Raciel Hawthorne MD - 06/24/2024 5:23 PM [employer] Raciel Hawthorne MD 06/24/2024 5:23 PM Peripheral IV Catheter Patient location: OR Staff: Supervising provider: George Mcnally MD Placed by: Resident: Raciel Hawthorne MD Preprocedure prep: Prep solution: alcohol PPE: gloves and provider hat/mask PIV line: Laterality: right Site: hand Catheter size: 16 g Technique: anatomical landmarks and direct visualization Procedure details: good blood return and occlusive dressing applied Number of attempts: 1 Assessment: Events: patient tolerated procedure well with no complications George Mcnally MD ANESTHESIA ORDERABLES Final Result * Arterial Line (06/24/2024 5:23 PM [employer]) Raciel Villanueva MD - 06/24/2024 5:23 PM [employer] Raciel Hawthorne MD 06/24/2024 5:23 PM Arterial Line Patient location: OR Indication: continuous blood pressure monitoring and blood sampling needed Ultrasound assisted: yes Staff: Supervising provider: George Mcnally MD Placed by: Resident: Raciel Hawthorne MD Procedure prep: Prep solution: chlorhexadine/alcohol Prep: sterile gloves and provider hat/mask Arterial line: Catheter size: 20 gauge Catheter length: 5 cm Catheter type: wire-guided catheter Seldinger technique: yes Laterality: right Site: radial artery Line secured: tape and Tegaderm Results: good waveform and good blood return Number of attempts: 1 Assessment: Events: patient tolerated procedure well with no complications George Mcnally MD ANESTHESIA ORDERABLES Final Result * Airway (06/24/2024 5:21 PM [employer]) Narrative Raciel Hawthorne MD - 06/24/2024 5:21 PM [employer] Raciel Hawthorne MD 06/24/2024 5:21 PM Airway Patient location: OR Urgency: elective Indications for airway management: anesthesia Difficult airway: no Staff: Supervising provider: George Mcnally MD Placed by: Resident: Raciel Hawthorne MD Emergent airway documentation: Risks and benefits discussed: yes Consent obtained: yes Consent given by: patient Airway prep: Preoxygenated: yes Patient position: sniffing Spontaneous ventilation during airway: absent Sedation level during ai
[2024-09-03 09:31] LABS: Estimated Glomerular Filt Rate > 60
== END 2024-09-03 09:00 | disposition home or self-care (01) ==
PROVIDERS: PCP Internal Medicine
DX: I65.23 Occlusion and stenosis of bilateral carotid arteries (principal)
CPT/HCPCS: 70496; 70498; Q9967

== ENCOUNTER 2024-11-01 07:41 | Outpatient (CLI) | payer BC, SELFPAY ==
--- OUTSIDE RECORDS SUMMARY | 2024-11-01 07:46 | XMS_ITS | Clinical Summary ---
Author Organization [facility] Address [address] [place] [address] Care Team Providers Care Grievance And Appeals Coordinator Name Role Phone Tavo Pickens MD Primary Care Provider [phone] Allergies Active Allergy Reactions Criticality Noted Date Comments Penicillins Hives,Other (See comments) High Reaction: Hives, Throat Swelling, Medications metoprolol XL (TOPROL-XL) 25 mg extended release tabletIndication s:hypertension Take 1 tablet (25 mg total) by mouth every morning Active OneTouch Ultra Test strip USE DIRECTED TWICE DAILY TO MONITOR DIABETES 4 Active OneTouch Ultra2 Meter misc USE DIRECTED TO MONITOR DIABETES CONTROL 4 Active clobetasoL (TEMOVATE) 0.05 % creamIndications :Skin Inflammation Apply 1 Application topically daily as needed 5 Active sildenafiL, pulm.hypertensio n, (REVATIO) 20 mg tablet Take 1 tablet (20 mg total) by mouth as needed 5 Active UNABLE TO FINDIndications: prostate health supplement [...] HOLD FOR 4 WEEKS. YOU MAY RESUME 07/23 5 Active rosuvastatin (CRESTOR) 40 mg tabletIndication s:hyperlipidemia Take 1 tablet (40 mg total) by mouth nightly Stopped due to muscle weakness on 06/06 30 tablet 2 5 Active Additional Information Patient taking differently: 5 mgoral Nightly, Stopped due to muscle weakness on 06/06, Indications: hyperlipidemia, Reported on 08/28/2024 Active Problems Problem Noted Date Diagnosed Date [...] Encounters Date Type Department Care Team Description 09/20/2024 Telephone [facility] Neurosurgery [address], [address] [place] [address] Polo Eastman MD 09/19/2024 10:00 AM CDT Telemedicine [facility] Neurosurgery [address] [place] [address] Advanced Medicine 6th [place] [address] [place] [address] Polo Eastman MD Stenosis of left carotid artery; Occlusion and stenosis of left vertebral artery 09/04/2024 8:20 PM CDT - 09/04/2024 11:59 PM CDT Hospital Encounter [facility] [address] [place] [address] Discharge Disposition: Discharge to home or self care 08/28/2024 10:30 AM CDT Office Visit [facility] Neurology [address] [place] [address] Deepti Che NP Stroke, acute, embolic (HCC) (Primary Dx); Paroxysmal atrial fibrillation (HCC); Hyperlipidemia with target LDL less than 70; HTN, goal below 130/80; Type 2 diabetes mellitus with hyperglycemia, without long-term current use of insulin (HCC); LINUS (obstructive sleep apnea); Stenosis of left carotid artery; History of CEA (carotid endarterectomy) from Last 3 Months Immunizations Immunization Administration [...] history of cardiac disorder - (Added by TW Conv) Kidney failure Mother Family histor y of renal failure - (Added by TW Conv) Kidney failure Sister Family histor y of renal failure - (Added by TW Conv) Anesthesia problems Neg Hx Relation Name Status Comments Mother Sister Social History Tobacco Use Types Packs/Day Years Used Date Smoking Tobacco: Former Cigarettes 1 37 1 981 - 2018 Smokeless Tobacco: Never Tobacco Cessation:Counseling Given: Not [...] on file Legal Sex Male 7:45 PM [employer] Gender Identity Not on file Sexual Orientation Not on file Obstetrics History Last Filed Vital Signs Vital Sign Reading Time Taken Comments Blood Pressure 132/91 08/28/2024 10:39 AM CDT Pulse 55 08/28/2024 10:39 AM CDT Temperature 36.8 C (98.2 F) 08/28/2024 10:39 AM CDT Respiratory Rate 14 06/25/2024 9:25 AM [employer] Oxygen Saturation 98% 06/25/2024 9:40 AM [employer] Inhaled Oxygen Concentration - - Weight 100.5 kg (221 lb 9.6 oz) 025 10:39 AM CDT Height 172.7 cm (5' 8) 08/28/2024 10:3 9 AM CDT Body Mass [...] 09/11/2020 Hemoglobin A1C 11/23/2024 05/26/2024 Influenza Vaccine (#1) 2024 04/11/2022, 2011 Depression Screening 05/26/2025 05/26/2024 Lipid Panel 05/27/2025 05/27/2024 eGFR 06/24/2025 06/24/2024, 05/26, 05/27/2024, Additional history exists Colon Cancer Screening-Colonoscopy 07/23/2028 07/23/2018, 02/04/2013 DTaP/Tdap/Td Vaccine (3 - Td or Tdap) 06/12/2032 06/12/2022, 03/19/2012 Hepatitis B Screening Completed 03/20/2013 , 05/04/2012, 03/19/2012 Colon Cancer Screening-CT Colonography Discontinued 07/23/2018, 02/04/2013 Colon Cancer Screening-DNA Stool Discontinued 07/24/19, 02/04/2013 Colon Cancer Screening-FIT Discontinued 07/23/2018, Colon Cancer Screening-Sigmoidoscopy Discontinued 07/23/2018, 02/04/2013 Zoster Vaccine Completed 06/04/2021, 10/28/2020 Procedures Procedure Name Priority Date/Time Associated Diagnosis Comments NEURO CT OUTSIDE REFERENCE Routine 09/04/2024 8:20 PM CDT EGFR Routine 06/24/2024 9:05 PM [employer] LIPID PANEL STAT 05/27/2024 8:38 PM [employer] HEMOGLOBIN A1C STAT 05/26/2024 4:48 PM [employer] COLONOSCOPY 07/23/2018 1:31 PM CDT from Last 3 Months or Most Recently Relevant to Health Maintenance Results * Neuro CT Outside Reference (09/04/2024 8:20 PM CDT) Impressions [facility] - 09/04/2024 8:20 PM CDT These images are for Reference purposes only and have not been reviewed by [facility] Radiology. There will be no report generated by a [facility] Radiologist. Narrative [facility] - 09/04/2024 8:20 PM CDT EXAMINATION: Images For Reference Purposes Only us Polo Eastman MD IMG CT PROCEDURES Katherin l Result [facility] * eGFR (06/24/2024 9:05 PM [employer]) eGFR 70 >=60 mL/min/1. 73 m2 Comment: [...] last reviewed 2021. Blood 06/24/2024 9:05 PM [employer] 06/24/2024 9:21 PM [employer] Polo Eastman MD LAB BLOOD ORDERABLES F inal Result [facility] [place] [address] * (ABNORMAL) Lipid panel (05/27/2024 8:38 PM [employer]) Cholesterol 180 30 - 199 mg/dL Comment: Interpretive Data Ages < or = 19 years Acceptable: <170 mg/dL Borderline high: 170-199 mg/dL High: >or= 200 mg/dL Ages > or = 20 years Desirable: <200 mg/dL Borderline high: 200-239 mg/dL High: >or= 240 mg/dL Literature References: 1. Expert Panel on Integrated Guidelines for Cardiovascular Health and Risk Reduction in Children and Adolescents. Pediatrics 2011;128:S213 2. NCEP Expert Panel. Circulation 2004;110:227 Current Interpretive Data was last revised on 2017. Triglycerides 184(H) <=149 mg/dL [facility] Comment: Interpretive Data Ages < or = 9 years Acceptable: <75 mg/dL Borderline high: 75-99 mg/dL High: >or= 100 mg/dL Ages 10 to 20 years Acceptable: <90 mg/dL Borderline high: 90-129 mg/dL High: >or= 130 mg/dL Ages > or = 20 years Desirable: <150 mg/dL Borderline high: 150-199 mg/dL High: 200-499 mg/dL Very high: >or= 499 mg/dL Literature References: 1. Expert Panel on Integrated Guidelines for Cardiovascular Health and Risk Reduction in Children and Adolescents. Pediatrics 2011;128:S213 2. NCEP Expert Panel. Circulation 2004;110:227 Current Interpretive Data was last revised on 2017. HDL 32(L) >=40 mg/dL [facility] Comment: Interpretive Data Ages < or = 19 years Acceptable: >45 mg/dL Borderline low: 40-45 mg/dL Low: <40 mg/dL Ages > or = 20 years Desirable: >or= 60 mg/dL Low: <40 mg/dL Literature References: 1. Expert Panel on Integrated Guidelines for Cardiovascular Health and Risk Reduction in Children and Adolescents. Pediatrics 2011;128:S213 2. NCEP Expert Panel. Circulation 2004;110:227 Current Interpretive Data was last revised on 2017. LDL, calculated 115 <=129 mg/dL [facility] Comment: Interpretive Data Ages < or = 19 years Acceptable: <110 mg/dL Borderline high: 110-129 mg/dL High: >or= 130 mg/dL Ages > or = 20 years Optimal: <100 mg/dL Near optimal: 100-129 mg/dL Borderline high: 130-159 mg/dL High: >160 mg/dL Calculated using the Venancio LDL-C estimating equation. This equation was implemented on 2023. Prior to this date LDL-C was estimated using the Friedewald equation. Literature References: 1. Expert Panel on Integrated Guidelines for Cardiovascular Health and Risk Reduction in Children and Adolescents. Pediatrics 2011;128:S213 2. NCEP Expert Panel. Circulation 2004;110:227 3. Venancio Yap et al. VENKATESH Cardiol. 2020 August 22;5(5):540-548. doi: 10.1001/jamacardio.2020.0013 Current Interpretive Data was last revised on 2023. Non-HDL Cholesterol 148 mg/dL [facility] Comment: Interpretive Data Ages < or = 19 years Acceptable: <120 mg/dL Borderline high: 120-144 mg/dL High: >145 mg/dL Ages > or = 20 years When triglycerides are >200 mg/dL, Non-HDL cholesterol is a secondary target of therapy with treatment goals that are 30 mg/dL greater than the LDL cholesterol target. Literature References: 1. Expert Panel on Integrated Guidelines for Cardiovascular Health and Risk Reduction in Children and Adolescents. Pediatrics 2011;128:S213 2. NCEP Expert Panel. Circulation 2004;110:227 Current Interpretive Data was last revised on 2017. Chol/HDL ratio 6 [facility] Blood 05/27/2024 8:38 PM [employer] 05/27/2024 9:42 PM [employer] Myriam Gonzalez NP LAB BLOOD ORDERABLES Final Result Performing Organization Address [facility] de Phone Number [facility] [place] [address] * (ABNORMAL) Hemoglobin A1c (05/26/2024 4:48 PM [employer]) Hgb A1C 6.8(H) 4.0 - 5.6 % Estimated Average Glucose 148 mg/dL [facility] Comment: The ADA recommends reporting an estimated Average Glucose (eAG) with all Hemoglobin A1c results using the equation derived from a study of 507 normal and diabetic adults. Minority populations were underrepresented and children were not included. (Diabetes Care 2020; 43(S1): S66-S76). The eAG is not equivalent to a fasting glucose. Blood 05/26/2024 4:48 PM [employer] 05/26/2024 4:59 PM [employer] Myriam Gonzalez NP LAB BLOOD ORDERABLES Final Result Performing Organization Address [facility] de Phone Number [facility] [place] [address] * COLONOSCOPY (07/23/2018 1:31 PM CDT) Anatomical Region Laterality Modality Other Narrative Procedure Note Ирина Alva MD - 07/23/2018 1:31 PM CDT GI ENDOSCOPY [facility] Patient Name: Rick Reeves Procedure Date: 07/23/2018 1:31 PM Date of : 1960 Admit Type: Outpatient Age: 58 Gender: Male Attending MD: Ирина Alva M.D. Room: [facility] ENDOSCOPY ROOM 3 Note Status: Finalized Procedure: Colonoscopy Indications: High risk colon cancer surveillance: Personalhistory of colonic polyps, Last colonoscopy: January 2013 Referring MD: aHrsha Bailey M.D. Providers: Ирина Alva M.D. Medicines: Monitored Anesthesia Care Complications: No immediate complications. Estimated Blood Loss: Estimated blood loss was minimal. Procedure: Pre-Anesthesia Assessment: - Immediately prior to administration ofmedications, the patient was re-assessed for adequacy to receive sedatives. - The risks and benefits of the procedure and the sedation options and risks were discussed with the patient. All questions were answered and informed consent was obtained. The benefits, risks and alternatives of theprocedure and sedation were discussed and informed consent was obtained. All questions were answered. Please referto the signed informed consent document in the medical record. The scope was passed under direct vision.The [id number] endoscope was introduced throughthe anus and advanced to the cecum, identified by appendiceal orifice and ileocecal valve. The colonoscopy was performed without difficulty. The patient tolerated the procedure well. The quality of the bowel preparation was evaluated using the BBPS ([place] Bowel Preparation Scale) with scores of:Right Colon = 2 (minor amount of residual staining, small fragments of stool and/or opaque liquid, but mucosa seen well), Transverse Colon = 3 (entire mucosa seen well with no residual staining, small fragments of stool or opaque liquid) and Left Colon = 3 (entire mucosa seen well with no residual staining, small fragments of stool or opaque liquid). The total BBPS score equals 8. The bowel preparation used was NuLytely. Bowel prep was administered using a split dose. The quality of the bowel preparation wasgood. Findings: The perianal and digital rectal examinations were normal. A 5 mm polyp was found in the ascending colon. The polyp was sessile. The polyp was removed with a cold snare. Resection and retrieval were complete. A 4 mm polyp was found in the ascending colon. The polyp was sessile. The polyp was removed with a jumbo cold forceps. Resection andretrieval were complete. A few small-mouthed diverticula were found in the sigmoid colon. The retroflexed view of the distal rectum and anal verge was normaland showed no anal or rectal abnormalities. Impression: - One 5 mm polyp in the ascending colon, removedwith a cold snare. Resected and retrieved. - One 4 mm polyp in the ascending colon, removedwith a jumbo cold forceps. Resected and retrieved. - Diverticulosis in the sigmoid colon. - The distal rectum and anal verge are normal on retroflexion view. Recommendation: - Await pathology results. - Repeat colonoscopy in 5 years for surveillance. Electronically signed by Ирина Alva MD Ирина Alva M.D. 07/23/2018 1:58:59 PM Number of Addenda: 0 Note Initiated On: 07/23/2018 1:31 PM Recognized by the [place] [employer] G[employer] for promoting quality in endoscopy Ирина Alva MD ENDOSCOPY PROCEDURES Final R esult from Last 3 Months or Most Recently Relevant to Health Maintenance [place] [address] [place] [address] [employer] Advance Directives For more information, please contact: [phone] * Full Code (Latest Code Status on File) Date Activated Date Inactivated Comments 06/25/2024 1:35 AM 06/25/2024 5:57 PM * Full Code Date Activated Date Inactivated Comments 05/26/2024 4:30 PM 05/28/2024 9:55 PM * Full Code Date Activated Date Inactivated Comments 07/23/2018 12:13 PM 07/23/2018 6:44 PM Care Teams Grievance And Appeals Coordinator Relationship Specialty Start Date End Date Tavo Pickens MD [address] [place] [address] PCP - General Internal Medicine 05/29/24
--- OUTSIDE RECORDS SUMMARY | 2024-11-01 07:46 | XMS_ITS | Referral Summary ---
Author Organization [facility] al Address [address] [place] [address] Care Team Providers Care Java Jsf Developer Name Role Phone Tavo Pickesn MD Primary Care Provider [phone] Encounters Date Type Department Care Team Description 09/20/2024 Telephone [facility] Neurosurgery [address], [address] [place] [phone] Polo Eastman MD 09/19/2024 10:00 AM CDT Telemedicine [facility] Neurosurgery [address] [facility] [address] [facility] 6th [place] [address] [place] [phone] Polo Eastman MD Stenosis of left carotid artery; Occlusion and stenosis of left vertebral artery 09/04/2024 8:20 PM CDT - 09/04/2024 11:59 PM CDT Hospital Encounter [facility] [address] [place] [address] Discharge Disposition: Discharge to home or self care 08/28/2024 10:30 AM CDT Office Visit [facility] [address] [address] [facility] [address] [place] [address] Deepti Che NP Stroke, acute, embolic (HCC) (Primary Dx); Paroxysmal atrial fibrillation (HCC); Hyperlipidemia with target LDL less than 70; HTN, goal below 130/80; Type 2 diabetes mellitus with hyperglycemia, without long-term current use of insulin (HCC); LINUS (obstructive sleep apnea); Stenosis of left carotid artery; History of CEA (carotid endarterectomy) from Last 3 Months Allergies Active Allergy [...] on file 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 Gender Identity Not on file Sexual Orientation Not on file Last Filed Vital Signs Vital Sign Reading Time Taken Comments Blood Pressure 132/91 08/28/2024 10:39 AM CDT Pulse 55 08/28/2024 10:39 AM CDT Temperature 36.8 C (98.2 F) 08/28/2024 10:39 AM CDT Respiratory Rate 14 06/25/2024 9:25 AM LICENSING ENGINEER Oxygen Saturation 98% 06/25/2024 9:40 AM LICENSING ENGINEER Inhaled Oxygen Concentration - - Weight 100.5 kg (221 lb 9.6 oz) 025 10:39 AM CDT Height 172.7 cm (5' 8) 08/28/2024 10:3 9 AM CDT Body Mass Index 33.69 08/28/2024 10:39 AM CDT Plan of Treatment Not on file Procedures Procedure Name Priority Date/Time Associated Diagnosis Comments NEURO CT OUTSIDE REFERENCE Routine 09/04/2024 8:20 PM CDT EGFR Routine 06/24/2024 9:05 PM LICENSING ENGINEER LIPID PANEL STAT 05/27/2024 8:38 PM LICENSING ENGINEER HEMOGLOBIN A1C STAT 05/26/2024 4:48 PM LICENSING ENGINEER COLONOSCOPY 07/23/2018 1:31 PM CDT from Last 3 Months or Most Recently Relevant to Health Maintenance Results * Neuro CT Outside Reference (09/04/2024 8:20 PM CDT) Impressions [facility] - 09/04/2024 8:20 PM CDT These images are for Reference purposes only and have not been reviewed by [facility] Radiology. There will be no report generated by a [facility] Radiologist. Narrative [facility]_PACS[facility] - 09/04/2024 8:20 PM CDT EXAMINATION: Images For Reference Purposes Only Polo Eastman MD IMG CT PROCEDURES Katherin l Result [facility] * eGFR (06/24/2024 9:05 PM LICENSING ENGINEER) eGFR 70 >=60 mL/min/1. 73 m2 Comment: [...] last reviewed 2021. Blood 06/24/2024 9:05 PM LICENSING ENGINEER 06/24/2024 9:21 PM LICENSING ENGINEER Polo Eastman MD LAB BLOOD ORDERABLES F inal Result [facility] Department [place] [address] * (ABNORMAL) Lipid panel (05/27/2024 8:38 PM LICENSING ENGINEER) Cholesterol 180 30 - 199 mg/dL Comment: [...] revised on 2017. Triglycerides 184(H) <=149 mg/dL [facility] Comment: Interpretive Data Ages < [...] revised on 2017. HDL 32(L) >=40 mg/dL [facility] Comment: Interpretive Data Ages < [...] on 2017. LDL, calculated 115 <=129 mg/dL [facility] Comment: Interpretive Data Ages < [...] 3. Venancio Yap et al. VENKATESH Cardiol. 2019August 22;5(5):540-548. doi: [email or web address] Current Interpretive Data was last revised on 2023. Non-HDL Cholesterol 148 mg/dL [facility] Comment: Interpretive Data Ages < [...] last revised on 2017. Chol/HDL ratio 6 [facility] Blood 05/27/2024 8:38 PM LICENSING ENGINEER 05/27/2024 9:42 PM LICENSING ENGINEER Myriam Gonzalez NP LAB BLOOD ORDERABLES Final Result Performing Organization Address City/[facility] de Phone Number [facility] [place] [address] * (ABNORMAL) Hemoglobin A1c (05/26/2024 4:48 PM LICENSING ENGINEER) Hgb A1C 6.8(H) 4.0 - 5.6 % Estimated Average Glucose 148 mg/dL [facility] Comment: The ADA recommends reporting an estimated Average Glucose (eAG) with all Hemoglobin A1c results using the equation derived from a study of 507 normal and diabetic adults. Minority populations were underrepresented and children were not included. (Diabetes Care 2020; 43(S1): S66-S76). The eAG is not equivalent to a fasting glucose. Blood 05/26/2024 4:48 PM LICENSING ENGINEER 05/26/2024 4:59 PM LICENSING ENGINEER Myriam Gonzalez NP LAB BLOOD ORDERABLES Final Result Performing Organization Address [facility]/ZIP Co de Phone Number [facility] [place] [address] * COLONOSCOPY (07/23/2018 1:31 PM CDT) Anatomical Region Laterality Modality Other Narrative Procedure Note Ирина Alva MD - 07/23/2018 1:31 PM CDT GI ENDOSCOPY [facility] Patient Name: Rick Reeves Procedure Date: 07/23/2018 1:31 PM Date of : 1960 Admit Type: Outpatient Age: 58 Gender: Male Attending MD: Ирина Alva M.D. Room: [facility] ENDOSCOPY ROOM 3 Note Status: Finalized Procedure: Colonoscopy Indications: High risk colon cancer surveillance: Personalhistory of colonic polyps, Last colonoscopy: January 2013 Referring MD: Harsha Bailey M.D. Providers: Ирина Alva M.D. Medicines: [...] The scope was passed under direct vision.The [id number] endoscope was introduced throughthe anus and advanced to the cecum, identified by appendiceal orifice and ileocecal valve. The colonoscopy was performed without difficulty. The patient tolerated the procedure well. The quality of the bowel preparation was evaluated using the BBPS ([place] Bowel Preparation Scale) with scores of:Right Colon [...] Electronically signed by Ирина Alva MD Ирина Alav M.D. 07/23/2018 1:58:59 PM Number of Addenda: 0 Note Initiated On: 07/23/2018 1:31 PM Recognized by the [place] [employer] for promoting quality in endoscopy Ирина Alva MD ENDOSCOPY PROCEDURES Final R esult from Last 3 Months or Most Recently Relevant to Health Maintenance Insurance [employer] OOS Advance Directives For more information, please contact: [phone] * Full Code (Latest Code Status on File) Date Activated Date Inactivated Comments 06/25/2024 1:35 AM 06/25/2024 5:57 PM * Full Code Date Activated Date Inactivated Comments 05/26/2024 4:30 PM 05/28/2024 9:55 PM * Full Code Date Activated Date Inactivated Comments 07/23/2018 12:13 PM 07/23/2018 6:44 PM Care Teams Java Jsf Developer Relationship Specialty Start Date End Date Tavo Pickens MD [address] [place] [address] PCP - General Internal Medicine 05/29/24
[2024-11-01 08:00] LABS: Hematocrit 44.4 % (40.0-54.0); Hemoglobin 14.9 g/dL (14.0-18.0); Immature Granulocyte Percent A 0.5 % (0.0-0.0); Lymphocytes Absolute Auto 1.88 K/mm3 (1.10-4.50); Mean Corpuscular HGB Conc 33.6 g/dL (32-36); Mean Corpuscular Hemoglobin 29.4 pg (27.0-31.0); Mean Corpuscular Volume 87.7 fL (78.0-102.0); Nucleated Red Blood Cells Absolute Auto 0.00 K/mm3 (0.00-0.00); Nucleated Red Blood Cells Perc 0.0 % (0-0.0); Platelet Count Result 217 K/mm3 (150-420); Red Blood Count 5.06 M/mm3 (4.70-6.10); White Blood Count 5.9 K/mm3 (4.8-10.8)
[2024-11-01 08:07] LABS: Add Urine Microscopic? NO; Appearance Urine Clear (Clear); Glucose Urine UA Negative (Negative); Leukocyte Esterase Ur Negative (Negative); Nitrate Urine Negative (Negative); Specific Grav Ur <= 1.005 (1.010-1.020)
[2024-11-01 08:20] LABS: Hemoglobin A1C 5.9 % (<5.7)
[2024-11-01 08:21] LABS: MALB Creatinine Ratio 13.1 mg/g (0-30)
[2024-11-01 08:40] LABS: Alanine Aminotransferase 22 U/L (6-50); Albumin Level 4.1 g/dL (3.5-5.1); Alkaline Phosphatase 46 U/L (38-126); Anion Gap 6 mmol/L (4-12); Aspartate Amino Transferase 31 U/L (17-59); Bilirubin,Total 1.0 mg/dL (0.2-1.3); Blood Urea Nitrogen 16 mg/dL (9-20); Calcium 9.0 mg/dL (8.4-10.2); Carbon Dioxide 27 mmol/L (22-30); Chloride 107 mmol/L (98-107); Cholesterol 163 mg/dL (0-200); Estimated Glomerular Filt Rate > 60; Glucose 124 mg/dL (65-110); HDL Direct 33 mg/dL; Osmolality Calculated 292 mOsm/kg (285-295); Potassium 4.6 mmol/L (3.4-5.0); Sodium 140 mmol/L (137-145); Total Protein 6.7 g/dL (6.3-8.2); Triglycerides 109 mg/dL (<150)
== END 2024-11-01 07:42 | disposition home or self-care (01) ==
LOC: CHSLAB 07:43
PROVIDERS: PCP Internal Medicine; Visit Provider Internal Medicine
DX: I73.9 Peripheral vascular disease, unspecified (principal); I48.91 Unspecified atrial fibrillation
CPT/HCPCS: 36415; 80053; 80061; 81003; 82043; 83036; 85025

== ENCOUNTER 2025-02-04 07:34 | Outpatient (CLI) | payer BC, SELFPAY ==
--- OUTSIDE RECORDS SUMMARY | 2025-02-04 07:38 | XMS_ITS | Clinical Summary ---
Author Organization [facility] Address [address] [place] [address] Care Team Providers Care Warehouse Distribution Manager Name Role Phone Tavo Pickens MD Primary Care Provider [phone] Deepti Che NP Unavailable [phone] Allergies Active Allergy Reactions Criticality Noted Date Comments Penicillins Hives,Other (See comments) High Reaction: Hives, Throat Swelling, Medications metoprolol XL (TOPROL-XL) 25 mg extended release tabletIndication s:hypertension Take 1 tablet (25 mg total) by mouth every morning Active clobetasoL (TEMOVATE) 0.05 % creamIndications :Skin Inflammation Apply 1 Application topically daily as needed 05/14/19 25 Active sildenafiL, pulm.hypertensio n, (REVATIO) 20 mg tablet Take 1 tablet (20 mg total) by mouth as needed 05/07/19 25 Active flecainide (TAMBOCOR) 50 mg tabletIndication s:Paroxysmal Atrial Fibrillation Take 1 tablet (50 mg total) by mouth as needed Take as needed if unable to make Afib stop Active apixaban (ELIQUIS) 5 mg tabletIndication s:atrial fibrillation HOLD FOR 4 WEEKS. YOU MAY RESUME 07/2306/26/19 25 Active ezetimibe (ZETIA) 10 mg tablet Take 1 tablet (10 mg total) by mouth daily 11/13/19 25 Active OneTouch Ultra Test strip USE DIRECTED TWICE DAILY TO MONITOR DIABETES 04/11/20 24 025 Discontin ued(Patie nt Reported) OneTouch Ultra2 Meter misc USE DIRECTED TO MONITOR DIABETES CONTROL 04/11/20 24 025 Discontin ued(Patie nt Reported) UNABLE TO FINDIndications: prostate health supplement Take 1 each by mouth every morning Med Name: Super Beta Prostate Advance tablet 025 Discontin ued(Patie nt Reported) ibuprofen 200 mg tab/capIndicatio ns:Pain Take 1 tablet/capsule (200 mg total) by mouth every 6 (six) hours as needed for pain 025 Discontin ued(Patie nt Reported) rosuvastatin (CRESTOR) 40 mg tabletIndication s:hyperlipidemia Take 1 tablet (40 mg total) by mouth nightly Stopped due to muscle weakness on 06/06 30 tablet 2 06/26/19 25 025 Discontin ued(Patie nt Reported) Active Problems Problem Noted Date Diagnosed Date BMI 33.0-33.9,adult 01/13/2025 LINUS (obstructive sleep apnea) 01/13/2025 Paroxysmal atrial fibrillation 01/13/2025 Carotid stenosis, left 06/24/2024 Stenosis of left [...] Encounters Date Type Department Care Team Description 01/13/2025 12:00 PM CDT Office Visit [facility] Medicine Neuro Sleep [address] [place] [address] 6th [address] [place] [address] Monica Glover MD LINUS (obstructive sleep apnea) (Primary Dx); BMI 33.0-33.9,adult; Occlusion and stenosis of left vertebral artery from Last 3 Months Immunizations Immunization Administration [...] on file Legal Sex Male 7:45 PM GRAPHIC PRODUCTION ARTIST Gender Identity Not on file Sexual Orientation Not on file Obstetrics History Last Filed Vital Signs Vital Sign Reading Time Taken Comments Blood Pressure 154/92 01/13/2025 11:42 AM CDT Pulse 60 01/13/2025 11:42 AM CDT Temperature 36.8 C (98.2 F) 01/13/2025 11:42 AM CDT Respiratory Rate 14 06/25/2024 9:25 AM GRAPHIC PRODUCTION ARTIST Oxygen Saturation 100% 01/13/2025 11:42 AM CDT Inhaled Oxygen Concentration - - Weight 99.6 kg (219 lb 8 oz) 01/13/2025 11:42 AM CDT Height 172.7 cm (5' 8) 01/13/2025 11:42 AM CDT Body Mass Index 33.37 01/13/2025 11:42 AM CDT Plan of Treatment Health Maintenance Due Date Last Done Comments Albumin Creatinine Ratio, Urine 1960 Hepatitis C Screening 1960 Prostate Cancer Screening-PSA 1960 Dilated Eye Exam 1960 Foot Exam 1960 Regular Well Visit/Exam 18-64 1980 Pneumococcal vaccine <65 (1 of 2 - PCV) 1981 Lung Cancer Screening 2012 Hemoglobin A1C 11/23/2024 05/26/2024 Covid-19 Vaccine ( - 2024-2 6 season) 2024 10/02/2020, 09/11/2020, 08/31/2020 Influenza Vaccine (#1) 2024 04/11/2022, 2011 Depression [...] Procedure Name Priority Date/Time Associated Diagnosis Comments EGFR Routine 06/24/2024 9:05 PM GRAPHIC PRODUCTION ARTIST LIPID PANEL STAT 05/27/2024 8:38 PM GRAPHIC PRODUCTION ARTIST HEMOGLOBIN A1C STAT 05/26/2024 4:48 PM GRAPHIC PRODUCTION ARTIST COLONOSCOPY 07/23/2018 1:31 PM CDT from Last 3 Months or Most Recently Relevant to Health Maintenance Results * eGFR (06/24/2024 9:05 PM GRAPHIC PRODUCTION ARTIST) eGFR 70 >=60 mL/min/1. 73 m2 Comment: [...] last reviewed 2021. Blood 06/24/2024 9:05 PM GRAPHIC PRODUCTION ARTIST 06/24/2024 9:21 PM GRAPHIC PRODUCTION ARTIST us Polo Eastman MD LAB BLOOD ORDERABLES F inal Result [facility] Department [place] [address] * (ABNORMAL) Lipid panel (05/27/2024 8:38 PM GRAPHIC PRODUCTION ARTIST) Cholesterol 180 30 - 199 mg/dL Comment: [...] revised on 2017. Triglycerides 184(H) <=149 mg/dL [facility] Comment: Interpretive Data Ages < [...] revised on 2017. HDL 32(L) >=40 mg/dL [facility] Comment: Interpretive Data Ages < [...] on 2017. LDL, calculated 115 <=129 mg/dL [facility] Comment: Interpretive Data Ages < or = [...] revised on 2023. Non-HDL Cholesterol 148 mg/dL [facility] Comment: Interpretive Data Ages < or = [...] last revised on 2017. Chol/HDL ratio 6 [facility] Blood 05/27/2024 8:38 PM GRAPHIC PRODUCTION ARTIST 05/27/2024 9:42 PM GRAPHIC PRODUCTION ARTIST us Myriam Gonzalez NP LAB BLOOD ORDERABLES Final Result [facility] Department [place] [address] * (ABNORMAL) Hemoglobin A1c (05/26/2024 4:48 PM GRAPHIC PRODUCTION ARTIST) Hgb A1C 6.8(H) 4.0 - 5.6 % Estimated Average Glucose 148 mg/dL [facility] Comment: The ADA recommends reporting an estimated Average Glucose (eAG) with all Hemoglobin A1c results using the equation derived from a study of 507 normal and diabetic adults. Minority populations were underrepresented and children were not included. (Diabetes Care 2020; 43(S1): S66-S76). The eAG is not equivalent to a fasting glucose. Blood 05/26/2024 4:48 PM GRAPHIC PRODUCTION ARTIST 05/26/2024 4:59 PM GRAPHIC PRODUCTION ARTIST us Myriam Gonzalez NP LAB BLOOD ORDERABLES Final Result [facility] Department [place] [address] * COLONOSCOPY (07/23/2018 1:31 PM CDT) Anatomical Region Laterality Modality Other Narrative Procedure Note Ирина Alva MD - 07/23/2018 1:31 PM CDT GI ENDOSCOPY [facility] Patient Name: Rick Reeves Procedure Date: 07/23/2018 1:31 PM Date of : 1960 Admit Type: Outpatient Age: 58 Gender: Male Attending MD: Ирина Alva M.D. Room: [facility] ENDOSCOPY ROOM 3 Note Status: Finalized [...] The scope was passed under direct vision.The [id number] endoscope was introduced throughthe anus and advanced to the cecum, identified by appendiceal orifice and ileocecal valve. The colonoscopy was performed without difficulty. The patient tolerated the procedure well. The quality of the bowel preparation was evaluated using the BBPS ([place] Bowel Preparation Scale) with scores of:Right Colon [...] On: 07/23/2018 1:31 PM Recognized by the [place] [employer] for promoting quality in endoscopy Ирина Alva MD ENDOSCOPY PROCEDURES Final R esult from Last 3 Months or Most Recently Relevant to Health Maintenance Insurance [facility] [employer] Advance Directives For more information, please contact: [phone] * Full Code (Latest Code Status on File) Date Activated Date Inactivated Comments 06/25/2024 1:35 AM 06/25/2024 5:57 PM * Full Code Date Activated Date Inactivated Comments 05/26/2024 4:30 PM 05/28/2024 9:55 PM * Full Code Date Activated Date Inactivated Comments 07/23/2018 12:13 PM 07/23/2018 6:44 PM Care Teams Warehouse Distribution Manager Relationship Specialty Start Date End Date Tavo Pickens MD [address] [place] [address] PCP - General Internal Medicine 05/29/24 Deepti Che NP [address] [place] [address] Nurse Practitioner Neurology 01/13/25
[2025-02-04 09:11] LABS: Hemoglobin A1C 6.2 % (<5.7)
[2025-02-04 09:18] LABS: Alanine Aminotransferase 26 U/L (6-50); Albumin Level 4.3 g/dL (3.5-5.1); Alkaline Phosphatase 52 U/L (38-126); Anion Gap 8 mmol/L (4-12); Aspartate Amino Transferase 33 U/L (17-59); Bilirubin,Total 0.9 mg/dL (0.2-1.3); Blood Urea Nitrogen 11 mg/dL (9-20); Calcium 9.5 mg/dL (8.4-10.2); Carbon Dioxide 29 mmol/L (22-30); Chloride 103 mmol/L (98-107); Cholesterol 102 mg/dL (0-200); Estimated Glomerular Filt Rate > 60; Glucose 129 mg/dL (65-110); HDL Direct 30 mg/dL; Osmolality Calculated 291 mOsm/kg (285-295); Potassium 4.6 mmol/L (3.4-5.0); Sodium 140 mmol/L (137-145); Total Protein 7.3 g/dL (6.3-8.2); Triglycerides 82 mg/dL (<150)
== END 2025-02-04 07:35 | disposition home or self-care (01) ==
LOC: CHSLAB 07:36
PROVIDERS: PCP Internal Medicine; Visit Provider Internal Medicine
DX: E11.9 Type 2 diabetes mellitus without complications (principal)
CPT/HCPCS: 36415; 80053; 80061; 83036